=== PATIENT | male | born 1965 | race Caucasian/White ===

== ENCOUNTER 2020-12-26 09:11 | Outpatient (CLI) | payer OTHER, SELFPAY ==
--- NOTE | ~2020-12-26 | US_ITS ---
EXAMINATION: US art doppler w press LE BI DATE: 12/26/2020 10:08 INDICATION: Peripheral vascular disease. TECHNIQUE: Segmental pressures and plethysmographic and Doppler waveforms of the brachial and lower e xtremity arteries were obtained. COMPARISON: None. FINDINGS: Right and left brachial artery pressures of 162 mm Hg and 155 mm Hg, respectively, are concordant (no rmal difference <= 30 mmHg). The right and left high-thigh pressure indices are 0.81 and 0.92, respec tively (normal > 1.2). The right ankle-brachial index (TAWNYA) is 0.65 (normal >= 0.9-1). The right great toe-brachial index (T BI) is 0.50 (normal >= 0.6-0.8). The right lower extremity segmental pressure gradients are normal (n ormal gradients <= 20-30 mmHg between adjacent levels on the same leg or the same levels on the two l egs). Arterial waveforms are biphasic with brisk systolic upstrokes at the right common femoral and s uperficial femoral arteries and monophasic with flattening and broadened systolic peaks with borderli ne delayed upstrokes at the right popliteal, posterior tibial and dorsalis pedis arteries. The left TAWNYA is 0.60. The left TBI is 0.53. The left lower extremity segmental pressure gradients are increased between the left high thigh and the left [id number] popliteal artery. Arterial wavefor ms are biphasic with brisk systolic upstrokes at the left common femoral and superficial femoral chris tomas and monophasic with flattening and broadened systolic peaks with borderline delayed upstrokes at the left popliteal, artery and with delayed upstrokes at the left posterior tibial and dorsalis pedi s arteries. IMPRESSION: 1. Arterial occlusive disease to the bilateral lower limbs with only decreased bilateral high thigh p ressure indices and moderately decreased bilateral ankle brachial indices. Reviewed, dictated and finalized at location A. IMPRESSION: 1. Arterial occlusive disease to the bilateral lower limbs with only decreased bilateral high thigh pressure indices and moderately decreased bilateral ankle brachial indices.
== END 2020-12-26 09:12 | disposition home or self-care (01) ==
LOC: ANHIMG 09:16
PROVIDERS: PCP Internal Medicine; Visit Provider Internal Medicine
DX: I73.9 Peripheral vascular disease, unspecified (principal)
CPT/HCPCS: 93923

== ENCOUNTER 2022-03-20 10:28 | Emergency (ER) | payer OTHER, SELFPAY ==
[2022-03-20 11:18] VITALS: BP 158/68; PULSE 57; RESP 16; TEMP 35.9; O2SAT 99
--- NOTE | 2022-03-20 11:50 | ED.GENADULT ---
HPI - General Adult General Chief complaint: Back Pain/Injury Stated complaint: low back pain Related Data Allergies Allergy/AdvReac Type Severity Reaction Status Date / Time No Known Allergies Allergy Verified 03/20/22 11:11 [facility] Family History Family History Father Family history of cardiovascular disease Social History Social History Smoking status: Current every day smoker Tobacco type: e-cigarettes/vaping Second hand tobacco smoke exposure: Yes Alcohol intake: current Substance use: current Substance use type: marijuana Course Vital Signs Vital signs: Vital Signs Temperature 96.6 F L 03/20/22 11:18 Pulse Rate 57 L 03/20/22 11:18 Respiratory Rate 16 03/20/22 11:18 Blood Pressure 158/68 H 03/20/22 11:18 Pulse Oximetry 99 03/20/22 11:18 Oxygen Delivery Room Air 03/20/22 11:18 Temperature 96.6 F L 03/20/22 11:18 Pulse Rate 57 L 03/20/22 11:18 Respiratory Rate 16 03/20/22 11:18 Blood Pressure 158/68 H 03/20/22 11:18 Pulse Oximetry 99 03/20/22 11:18 Oxygen Delivery Room Air 03/20/22 11:18 Medical Decision Making Vital Signs Vital Signs: Vital Signs Temperature 96.6 F L 03/20/22 11:18 Pulse Rate 57 L 03/20/22 11:18 Respiratory Rate 16 03/20/22 11:18 Blood Pressure 158/68 H 03/20/22 11:18 Pulse Oximetry 99 03/20/22 11:18 Oxygen Delivery Room Air 03/20/22 11:18 Temperature 96.6 F L 03/20/22 11:18 Pulse Rate 57 L 03/20/22 11:18 Respiratory Rate 16 03/20/22 11:18 Blood Pressure 158/68 H 03/20/22 11:18 Pulse Oximetry 99 03/20/22 11:18 Oxygen Delivery Room Air 03/20/22 11:18 Lab Data Labs: Urine Glucose Negative Reference Range: Negative Urine Bilirubin Negative Reference Range: Negative Urine Ketone Negative Reference Range: Negative Urine Specific Kinsman 1.015 Reference Range:1.001-1.035 Urine Blood 1+ Reference Range: Negative * * Urine pH 6.5 Reference Range: 5.0-9.0 Urine Protein Negative Reference Range: Negative Urine Urobilinogen 1.0 Reference Range: 0.2-1.0 Urine Nitrate Negative Reference Range: Negative Urine Leukocyte Negative Reference Range: Negative Urine Color Yellow Reference Range: Yellow Urine Characteristics Clear Discharge Plan Discharge Prescriptions: No Action hydrochlorothiazide 25 mg tablet 25 mg PO DAILY Qty: 90 1RF nadolol 20 mg tablet 20 mg PO DAILY Qty: 30 5RF levothyroxine 125 mcg tablet 125 mcg PO DAILY Qty: 90 1RF atorvastatin 20 mg tablet 20 mg PO DAILY Qty: 90 1RF pantoprazole 40 mg tablet,delayed release (DR/EC) 40 mg PO QAM Qty: 90 1RF lisinopril 40 mg tablet 40 mg PO DAILY Qty: 90 1RF Xarelto 20 mg tablet 20 mg PO DAILY Qty: 30 5RF Rx Instructions: must administer with evening meal Follow-up/Referrals: Jalen Pedraza, [Primary Care Provider] -
--- NOTE | 2022-03-20 11:53 | ED.BACK ---
HPI - Back Pain/Injury General Chief Complaint: Back Pain/Injury Stated Complaint: low back pain Time Seen by Provider: 03/20/22 11:55 Source: patient, RN notes reviewed and old records reviewed Mode of arrival: ambulatory Limitations: no limitations History of Present Illness HPI Narrative: 56-year-old male presents to the [facility] with complaints of upper lumbar back pain for about a week, right side. No urinary symptoms. No abdominal pain or chest pain. Patient reports that has been intermittent. States about a week ago he bumped it on something. Also concern for a kidney stone. No bruising or swelling noted. Has full range of motion. Symptoms are very intermittent mom with changing of positions and movement making symptoms worse Denies any loss retention of bowel or bladder. No midline tenderness. No saddle anesthesia. Walks with a normal gait Related Data Allergies Allergy/AdvReac Type Severity Reaction Status Date / Time No Known Allergies Allergy Verified 03/20/22 11:11 Review of Systems Review of Systems: All systems reviewed & are unremarkable except as noted in HPI and below Constitutional: Constitutional: Reports no additional constitutional complaints Eyes: Eyes: Reports no additional eye complaints ENT: Reports system reviewed and no additional complaints, except as documented Cardiovascular: Cardiovascular: Reports no additional cardiovascular complaints, Denies chest pain and Denies dyspnea Respiratory: Respiratory: Reports no additional respiratory complaints, Denies chest congestion, Denies cough and Denies dyspnea Gastrointestinal: Gastrointestinal: Reports no additional gastrointestinal complaints, Denies abdominal pain, Denies nausea and Denies vomiting Musculoskeletal: Musculoskeletal: Reports as per HPI and Reports back pain Integumentary/Breasts: Skin/Breast: Reports system reviewed and no additional complaints, except as docu Neurologic: Reports system reviewed and no additional complaints, except as documented Psychiatric: Psychiatric: Reports no additional psychiatric complaints Allergic/Immunologic: Allergic/Immunologic: Reports no additional allergic/immunologic complaints [facility] Family History Family History Father Family history of cardiovascular disease Social History Social History Smoking status: Current every day smoker Tobacco type: e-cigarettes/vaping Second hand tobacco smoke exposure: Yes Alcohol intake: current Substance use: current Substance use type: marijuana Comments At the time of my signature, I reviewed and agree with the nursing past medical, surgical, social, and family history. There is no relevant family history pertinent to the patient complaint. Exam Const: General: cooperative, healthy appearing, comfortable, no acute distress, well developed, alert and well nourished Nutritional Appearance: well nourished Orientation/consciousness: patient oriented x3 Limitations: no limitations HENMT: Head: normal to inspection Ears: hearing grossly normal bilaterally and external ears normal Face/Nose/Sinus: Normal external nose present, Normal nares present, Normal nasal mucous membranes and turbinates present and normal facial exam Face and sinus: normal facial exam Mouth: Yes Normal oral and palatal mucosa present, Yes lip normal and Yes moist mucous membranes Throat: posterior oropharynx normal and uvula midline Eyes: General: appearance normal, both eyes and all related structures Alignment and Position: alignment normal Periorbital: periorbital findings normal Conjunctivae: conjunctivae normal Pupils: Equal, round and reactive pupils present EOM: EOMs intact bilaterally Neck: Neck: normal visual inspection, full ROM, no lymphadenopathy and no meningeal signs Chest: Chest palpation & inspection: normal inspection of the
== END 2022-03-20 12:17 | disposition home or self-care (01) ==
PROVIDERS: Emergency Provider Nurse Practitioner; PCP Internal Medicine
DX: S39.012A Strain of muscle, fascia and tendon of lower back, initial encounter (principal); W22.8XXA Striking against or struck by other objects, initial encounter; F17.290 Nicotine dependence, other tobacco product, uncomplicated; E78.00 Pure hypercholesterolemia, unspecified; I10 Essential (primary) hypertension; K21.9 Gastro-esophageal reflux disease without esophagitis; E03.9 Hypothyroidism, unspecified; Z86.2 Personal history of diseases of the blood and blood-forming organs and certain disorders involving the immune mechanism
CPT/HCPCS: 81003; 99213; G0463

== ENCOUNTER 2022-03-30 06:52 | Emergency (ER) | payer OTHER, SELFPAY ==
--- NOTE | ~2022-03-30 | CT_ITS ---
Non-contrast Head CT History: Metastatic disease Technique: Axial non-contrast imaging of the brain was performed. Dose reduction technique was used on this scan by utilizing automated exposure control and iterative reconstruction technique. The dose -length product (DLP) was 605.33 mGy-cm. Findings: There is no evidence of intracranial hemorrhage, mass lesion, or acute infarct. Brain par enchyma appears normal. The ventricles and subarachnoid spaces are normal in size. The calvarium ap pears normal. The visualized paranasal sinuses and mastoid air cells are clear. Impression: No significant abnormality seen. Please note that contrast enhanced MR is more sensitive for small me tastatic lesions. Reviewed, dictated and finalized at [facility]. 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 Please note that contrast enhanced MR is more sensitive for small metastatic lesions.
--- NOTE | ~2022-03-30 | CT_ITS ---
Clinical Indication: Metastatic disease CT Scan of the Chest, Abdomen, and Pelvis with Contrast: Technique: Contiguous sections were acquired throughout the chest, abdomen, and pelvis after intraven ous administration of 100 cc of Omnipaque 350. Dose reduction technique was used on this scan by uti lizing automated exposure control and iterative reconstruction technique. The dose-length product (DL P) was 861.25 mGy-cm. COMPARISON: Noncontrast abdominopelvic CT performed earlier on 03/30/2022 Findings: There is no evidence of any significant mediastinal, hilar or axillary lymphadenopathy. The mediastin al soft tissues and vascular structures appear normal. There is no evidence of pleural or pericardial effusion. 4 mm right lower lobe pulmonary nodule noted (axial image 64). Lungs are otherwise clear. Multiple hypodense hepatic masses are again present, with much more extensive involvement of the left hepatic lobe than the right. Largest lesion again measures approximately 4.2 cm in diameter. 2.5 cm right adrenal nodule suspicious for metastasis. Small calcified gallstones noted. The spleen, pancrea s, and right adrenal gland are within normal limits. Simple right renal cysts noted. Left kidney is r elatively atrophic. No evidence of aortic aneurysm. There is extensive retroperitoneal/periaortic lymphadenopathy. There is bulky melinda hepatis/peripancr eatic lymphadenopathy. Largest node in the peripancreatic region measures 4.2 x 3.1 cm (axial image 1 26). Lymphadenopathy extends along the bilateral common iliac and right external iliac chains. Most a ccessible node measures 3.3 cm in diameter at the right external iliac chain at the right lower quadr ant (axial image 216). No bowel obstruction. Suggestion of extensive wall thickening of the gastric body. No ascites. Urinary bladder is unremarkable. Prostate gland and seminal vesicles are unremarkable. Impression: Extensive hepatic and gallo metastatic disease, as well as probable right adrenal metastasis, as seen on earlier noncontrast CT. Suggestion of extensive wall thickening of the gastric body. Metastatic gastric carcinoma is a consid eration. Consider endoscopy and/or tissue sampling of metastatic lesion to establish histologic diagn osis. Single 4 mm right lower lobe pulmonary nodule, nonspecific. Cholelithiasis. Reviewed, dictated and finalized at [facility]. 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 Suggestion of extensive wall thickening of the gastric body. Metastatic gastric carcinoma is a consideration. Consider endoscopy and/or tissue sampling of met astatic lesion to establish histologic diagnosis. Single 4 mm right lower lobe pulmonary nodule, nonspecific. Cholelithiasis.
--- NOTE | ~2022-03-30 | CT_ITS ---
Non-contrast CT scan of the Abdomen and Pelvis Clinical indication: Groin pain Technique: 5 mm axial scans were obtained through the abdomen and pelvis without intravenous or oral contrast. Dose reduction technique was used on this scan by utilizing automated exposure control and iterative reconstruction technique. The dose-length product (DLP) was 734.67 mGy-cm. COMPARISON: 07/30/2017 Findings: Images through the lung bases reveal no abnormalities. There are numerous hypodense hepatic masses, predominantly within the left hepatic lobe, consistent w ith extensive hepatic metastatic disease. Somewhat nodular contour of the liver overall, but no intra hepatic biliary dilatation. Small calcified gallstones noted. 2 cm right adrenal nodule present. Right renal cysts are present. Left kidney is relatively atrophic. The spleen, pancreas, and left adr enal gland appear normal. There is no aortic aneurysm. There is extensive retroperitoneal/periaortic lymphadenopathy extending along the bilateral common iliac chains and the right external iliac chain . Right external iliac node in the right lower quadrant measures 3.5 cm in diameter. There is additio nal peripancreatic/melinda hepatis lymphadenopathy, with largest node measuring 4 cm in diameter (axial image 55). There is no evidence of bowel obstruction. Images through the pelvis were performed. No ascites. Urinary bladder unremarkable. Prostate gland an d seminal vesicles are unremarkable. Impression: Extensive hepatic and gallo metastatic disease, as detailed above, with additional right adrenal prob able metastasis. Primary/source lesion remains unclear. Tissue sampling advised to attempt to establi sh a histologic diagnosis. Cholelithiasis. Reviewed, dictated and finalized at [facility] [place]. 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 Primary/source lesion remains unclear. T issue sampling advised to attempt to establish a histologic diagnosis. Cholelithiasis.
[2022-03-30 07:02] VITALS: BP 185/85; PULSE 71; RESP 16; TEMP 36.8; O2SAT 99
[2022-03-30 08:06] LABS: Basophils Percent Auto 0.4 % (0.2-1.2); Eosinophils Absolute Auto 0.2 K/mm3 (0-0.3); Eosinophils Percent Auto 1.8 % (0-4.4); Hematocrit 39.4 % (42.0-52.0); Hemoglobin 13.2 g/dL (14.0-18.0); Immature Granulocyte Absolute 0.05 K/mm3 (0.00-0.031); Immature Granulocyte Percent A 0.5 % (0-0.5); Lymphocytes Absolute Auto 1.22 K/mm3 (0.9-3.2); Lymphocytes Percent Auto 13.1 % (18.3-44.2); Mean Corpuscular HGB Conc 33.5 g/dl (32-36); Mean Corpuscular Hemoglobin 30.6 pg (26-34); Mean Corpuscular Volume 91.2 fl (80-100); Mean Platelet Volume 9.4 fl (7.4-10.4); Monocytes Absolute Auto 0.7 K/mm3 (0.1-0.6); Monocytes Percent Auto 7.6 % (2.6-8.5); Neutrophils Absolute Auto 7.1 K/mm3 (1.3-6.7); Neutrophils Percent Auto 76.6 % (45.5-73.1); Platelet Count Result 258 k/mm3 (150-375); Red Blood Count 4.32 M/mm3 (4.6-6.20); Red Cell Distribution Width 11.9 % (11.5-14.5); White Blood Count 9.3 K/mm3 (4.5-10.0)
[2022-03-30 08:16] LABS: Alanine Aminotransferase 22 U/L (6-50); Albumin Level 4.3 g/dL (3.5-5.1); Alkaline Phosphatase 85 U/L (38-126); Anion Gap 6 mmol/L (8-16); Aspartate Amino Transferase 40 U/L (17-59); Bilirubin,Total 0.9 mg/dL (0.2-1.3); Blood Urea Nitrogen 15 mg/dL (9-20); Calcium 10.1 mg/dL (8.4-10.2); Carbon Dioxide 32 mmol/L (22-30); Chloride 96 mmol/L (98-107); Estimated CRCL calculation 72 ml/min; Estimated Glomerular Filt Rate > 60; Glucose 145 mg/dL (65-110); Sodium 134 mmol/L (137-145)
--- NOTE | 2022-03-30 09:33 | ED.GENADULT ---
HPI - General Adult General Chief complaint: Fall Stated complaint: fall/ groin pain Time Seen by Provider: 03/30/22 06:58 Source: patient Mode of arrival: ambulatory Limitations: no limitations History of Present Illness HPI narrative: 56-year-old with a history of hypertension, DVTs on Xarelto here with complaints of right groin pain for past 2 days. Patient states that he did splits and ever since then he has been having significant pain in his right groin. Patient states that he went to work yesterday was having significant pain while he was walking today he was unable to walk. He denies any other injuries. No history of nausea, vomiting. Onset (ago): day(s) (2) Radiation: non-radiation Severity: moderate Quality: aching Pain Consistency: constant Relieving factors: none Exacerbating factors: none Associated symptoms: denies other symptoms Related Data Allergies Allergy/AdvReac Type Severity Reaction Status Date / Time No Known Allergies Allergy Verified 03/30/22 08:38 Review of Systems Review of Systems: All systems reviewed & are unremarkable except as noted in HPI and below Constitutional: Constitutional: Reports no additional constitutional complaints Eyes: Eyes: Reports no additional eye complaints ENT: Reports system reviewed and no additional complaints, except as documented Cardiovascular: Cardiovascular: Reports no additional cardiovascular complaints Respiratory: Respiratory: Reports no additional respiratory complaints Gastrointestinal: Gastrointestinal: Reports no additional gastrointestinal complaints Genitourinary: Genitourinary: Reports no additional male genitourinary complaints Musculoskeletal: Musculoskeletal: Reports as per HPI Integumentary/Breasts: Skin/Breast: Reports system reviewed and no additional complaints, except as docu Neurologic: Reports system reviewed and no additional complaints, except as documented PMFSH Family History Family History Father Family history of cardiovascular disease Social History Social History Smoking status: Current every day smoker Tobacco type: e-cigarettes/vaping Second hand tobacco smoke exposure: Yes Alcohol intake: current Substance use: current Substance use type: marijuana Exam Narrative: GENERAL: Well-appearing, well-nourished, and in no acute distress. HEAD: Normocephalic, atraumatic. EYES: PERRLA and EOMI. ENT: Nares clear, no rhinorrhea or epistaxis. Mucous membranes moist. NECK: Supple. CHEST: Clear to auscultation. No respiratory distress. HEART: Regular rate and rhythm. No murmur heard. Normal peripheral pulses. ABDOMEN: Soft, nontender, nondistended, normal active bowel sounds. Examination of the right groin shows no obvious hernia or masses. EXTREMITIES: Normal range of motion. No edema. SKIN: Warm, dry, no rash. NEURO: No focal deficits. Alert and oriented x3. PSYCH: Normal mood and affect. Course Course Emergency Course: 56-year-old here with right groin pain and thinks there is a big mass in his right groin I did not elicit any obvious hernia or mass did a CT scan which showed metastatic lesions in the abdomen. I discussed with oncologist who recommended CT of the head and CT of the chest and abdomen with contrast which I did which shows multiple lesions in the abdomen. I did discuss with Dr. Pedraza will follow up with this patient. I did inform patient and his family who are at the bedside for a follow-up with Dr. Pedraza in the next few days for possible biopsy. Meanwhile we will give him not hydrocodone tablets for his groin pain. Vital Signs Vital signs: Vital Signs Temperature 36.8 C 03/30/22 07:02 Pulse Rate 71 03/30/22 07:02 Respiratory Rate 16 03/30/22 07:02 Blood Pressure 185/85 H 03/30/22 07:02 Pulse Oximetry 99 03/30/22 07:02 Oxygen Delivery Room Air 1
== END 2022-03-30 10:26 | disposition home or self-care (01) ==
PROVIDERS: Emergency Provider Family Medicine; PCP Internal Medicine
DX: R10.31 Right lower quadrant pain (principal); C78.7 Secondary malignant neoplasm of liver and intrahepatic bile duct; C80.1 Malignant (primary) neoplasm, unspecified; F17.290 Nicotine dependence, other tobacco product, uncomplicated; K80.20 Calculus of gallbladder without cholecystitis without obstruction; R91.1 Solitary pulmonary nodule; W00.0XXA Fall on same level due to ice and snow, initial encounter
CPT/HCPCS: 36415; 70450; 71260; 74176; 74177; 74178; 80053; 85025; 99284; Q9967

== ENCOUNTER 2022-04-20 09:15 | Outpatient (CLI) | payer OTHER, SELFPAY ==
--- NOTE | ~2022-04-20 | US_ITS ---
EXAMINATION: US biopsy lymph node DATE: 04/20/2022 10:22 INDICATION: Multiple enlarged lymph nodes concerning for metastatic disease. TECHNIQUE: The procedure including the risks and benefits was discussed with the patient. Risks discu ssed included bleeding and infection. The patient understood the risks and agreed to proceed. The sk in overlying the right groin was prepped and draped in usual sterile fashion. Anesthetic was adminis tered with 1% lidocaine subcutaneously. An 18 gauge core biopsy needle was advanced under continuous ultrasound observation to the lesion of interest. 5 core biopsy specimens were obtained. The needl e was removed and the entry site was cleaned and dressed. Post procedure ultrasound demonstrated no hemorrhage. FINDINGS: Ultrasound images demonstrate a 4.3 x 3.1 x 3.6 cm hypoechoic right inguinal lymph node. Beltran bsequent images demonstrate the biopsy needle advanced into the lymph node.. IMPRESSION: 1. Successful Ultrasound-guided biopsy of an enlarged 4.3 cm right inguinal lymph node which is da rning for metastatic disease. Reviewed, dictated and finalized at location A. 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 Successful Ultrasound-guided biopsy of an enlarged 4.3 cm right inguinal lym ph node which is concerning for metastatic disease.
== END 2022-04-20 09:16 | disposition home or self-care (01) ==
PROVIDERS: PCP Physician Assistant; Visit Provider Internal Medicine
DX: I89.9 Noninfective disorder of lymphatic vessels and lymph nodes, unspecified (principal); C77.4 Secondary and unspecified malignant neoplasm of inguinal and lower limb lymph nodes
CPT/HCPCS: 38505; 76942; 88305; 88313; 88342

== ENCOUNTER 2022-05-06 12:58 | Outpatient (CLI) | payer OTHER, SELFPAY ==
[2022-05-06 14:58] LABS: Prothrombin Time 13.1 Seconds (11.1-14.7)
[2022-05-06 14:59] LABS: Partial Thromboplastin Time 29.5 SECONDS (22.3-36.8)
== END 2022-05-06 12:59 | disposition home or self-care (01) ==
PROVIDERS: PCP Internal Medicine; Visit Provider Surgery
DX: C16.9 Malignant neoplasm of stomach, unspecified (principal)
CPT/HCPCS: 36415; 85610; 85730

== ENCOUNTER 2022-05-10 00:06 | Day surgery (SDC) | payer OTHER, SELFPAY ==
[2022-05-04 09:11] VITALS: BMI 27.2
--- NOTE | 2022-05-04 09:14 | PC.NURSE ---
Report to the Outpatient Waiting Room, entrance under the green pavilion located off [facility], at time 10:00 on date 05/10/22. Planned Procedure Time: 12:00. Time changes happen often and if your time is changed the preop area will call you the afternoon before. - You and your visitor will be asked to self-screen and do not enter if you have any COVID symptoms. - Only one visitor is requested with a max of two and NO children visitors are allowed at this time. - The patient visitor may be requested to leave or wait in car when not with patient due to distancing restrictions. - A mask is optional within the hospital at this time. Patients may have clear liquids (water, carbonated beverages, clear teas, apple juice) until 3 hours prior to surgery (9:00) with a maximum of 20 ounces. - No food from midnight until time of surgery Take the following medications with a SIP of water the morning of surgery: LEVOTHYROXINE, NADOLOL, PAIN PILL IF NEEDED DO NOT STOP ANY OF YOUR OTHER PRESCRIPTION MEDICATIONS PRIOR TO SURGERY EXCEPT THE FOLLOWING Medications to discontinue per physician: XARELTO Date to take last dose: INSTRUCTED BY Please no make-up, nail moldovan, hairspray, perfume, deodorant, or body powder the day of surgery. No jewelry (including any body piercings) or valuables the day of surgery, leave them at home. Please take a shower or bath the night before, or the morning of, surgery with an antibacterial soap. Wear comfortable, loose fitting clothing. - Jewelry must be removed prior to entering the operating room. Rings and piercings that are not removed may be cut off. - The hospital will not accept responsibility for valuables. - Please leave all valuables, including medications, at home the day of surgery. If you are going home after surgery, a licensed ups driver must drive you home. - NO public transportation without another adult if you receive anesthesia. - We recommend that an adult stay with you for 24 hours following discharge. - We also recommend that you do not drive, make important decision, drink alcoholic beverages, or take any drugs that were not prescribed by your health care provider for at least 24 hours after your discharge time. Follow any additional instructions given to you from your surgeon. If you or anyone in your household have experienced Covid symptoms in the past week, please notify your surgeon or the nurse liaison at the phone number below for possible testing. Telephone instructions given to CHESTER GONZALEZ and asked if any additional questions and then verbalized understanding. Patient advised to call surgeon office or pre surgery nurse liaison [phone] if any additional questions.
--- NOTE | ~2022-05-10 | XR_ITS ---
EXAMINATION: XR fl guide central line place INDICATION: Port-A-Cath insertion TECHNIQUE: Single intraoperative fluoroscopic image is submitted for review. Total fluoroscopic time is 18.0 seconds. COMPARISON: None available FINDINGS: Fluoroscopic image demonstrates a right internal jugular Port-A-Cath ending with its tip in the superior vena cava. Please refer to procedure note for full details. IMPRESSION: 1. Right internal jugular Port-A-Cath ending in the superior vena cava. Reviewed, dictated and finalized at location B. MACY TECH CUSTOMER SERVICE
--- NOTE | ~2022-05-10 | XR_ITS ---
EXAMINATION: XR chest port-a-cath/central DATE: 05/10/2022 08:48 INDICATION: Port placement. TECHNIQUE: A single frontal view of the chest was obtained on 2 radiographs. COMPARISON: Chest 2 views 07/30/2017, chest CT 03/30/2022 FINDINGS: The chest demonstrates clear lungs without pneumonia, pleural effusion, or pneumothorax. Th e heart size is normal. There is a right internal jugular port with tip in superior vena cava. IMPRESSION: 1. Port tip in superior vena cava. Reviewed, dictated and finalized at location A. L CRANE OPERATOR
--- NOTE | 2022-05-10 06:42 | WPDANESEPPF ---
Anes - Initial Pre Proc Eval Procedure: Operation Date: 05/10/22 07:30 Proposed Procedures p Insertion Arlene Cath - Agus Maria MD Date/Time: 05/10/22 06:42 Surgeon: Agus Maria MD Pre Op Diagnosis: Ca body of stomach Patient Data Age: 56 Gender: M Height: 1.78 m Weight: 86.2 kg Allergies Allergy/AdvReac Type Severity Reaction Status Date / Time No Known Allergies Allergy Verified 05/04/22 09:09 Home Medications Medication Instructions Recorded Confirmed Type hydrochlorothiazide 25 mg tablet 25 mg PO DAILY #90 tabs 10/20/21 05/04/22 Rx nadolol 20 mg tablet 20 mg PO DAILY #30 tabs 11/15/21 05/04/22 Rx levothyroxine 125 mcg tablet 125 mcg PO DAILY #90 tabs 12/14/21 05/04/22 Rx atorvastatin 20 mg tablet 20 mg PO DAILY #90 tabs 12/15/21 05/04/22 Rx pantoprazole 40 mg tablet,delayed 40 mg PO QAM #90 tabs 12/15/21 05/04/22 Rx release lisinopril 40 mg tablet 40 mg PO DAILY #90 tabs 01/14/22 05/04/22 Rx rivaroxaban 20 mg tablet (Xarelto) 20 mg PO DAILY #30 tabs 01/14/22 05/04/22 Rx baclofen 10 mg tablet 10 mg PO TID PRN muscle pain #10 03/20/22 05/04/22 Rx tabs hydrocodone 5 mg-acetaminophen 325 1 tablet PO Q12H #30 tabs 04/07/22 05/04/22 Rx mg tablet Patient hx anesthesia problems: none Family hx anesthesia problems: none Results Review: All pre-operative results and documents have been reviewed as part of the pre-operative evaluation. [facility] Past Medical History Medical History HTN (hypertension) MALINI (obstructive sleep apnea) Overweight Smoker Family History Family History Father Family history of cardiovascular disease Social History Social History Smoking packs per day: 0.75 Smoking cigarettes per day: 15.0 Years smoked: 20 Smoking pack-years: 15.00 Smoking status: Current every day smoker Tobacco type: cigarettes Second hand tobacco smoke exposure: Yes Alcohol intake: former Substance use: current Substance use type: marijuana Lack of Transportation: No Lack of Food: Sometimes True Current Housing: I Have Housing Concerned About Future Housing: No Difficulty Paying Gas/Electric Bills: No Difficulty Paying for Meds: No Currently Unemployed: No Education: Grade School Difficulty w/ Childcare or Family Care: No Living arrangements: with family Spiritual care concerns: No Anes - Eval Final PreProcedure Day of Procedure 05/10/22 06:42 Patient weight: overweight Heart: regular rate and rhythm Lungs: clear to auscultation Airway: Mallampati scale class II Neurological: alert and oriented Last oral intake: >/= 8 hours ASA classification: III Emergent: no Anesthetic plan: proceed Anesthesia type and monitoring: general GIVS and standard monitoring Results Review: All pre-operative results and documents have been reviewed as part of the pre-operative evaluation. Informed Consent: The patient's anesthetic plan and its attendant risks and benefits were discussed with the patient/family/POA. Questions were solicited and answers provided to the satisfaction of the patient/family/POA.
[2022-05-10] MEDS: LACTATED RINGERS 1,000 ML 30 ML IV CONT (06:45)
[2022-05-10] MEDS: KETOROLAC 15 MG/ML VIAL (*BKC) IV PUSH (06:45)
[2022-05-10 07:00] VITALS: BP 207/90; PULSE 87; RESP 16; TEMP 36.7; O2SAT 100
--- NOTE | 2022-05-10 07:36 | PM.IMHP ---
H&P: HPI History of Present Illness Date/Time: 05/10/22 07:36 Chief Complaint: Needs portacatheter placement Narrative: Pt with gastric cancer who is needing vascular access for upcoming chemotherapy treatments. Has never had a central line or port in the past. Review of Systems Review of Systems: I have discussed the patient with Chanda Chaney APN and agree with the documented note below and care plan. [facility] Past Medical History Medical History HTN (hypertension) MALINI (obstructive sleep apnea) Overweight Smoker Family History Family History Father Family history of cardiovascular disease Social History Social History Smoking packs per day: 0.75 Smoking cigarettes per day: 15.0 Years smoked: 20 Smoking pack-years: 15.00 Smoking status: Current every day smoker Tobacco type: cigarettes Second hand tobacco smoke exposure: Yes Alcohol intake: former Substance use: current Substance use type: marijuana Lack of Transportation: No Lack of Food: Sometimes True Current Housing: I Have Housing Concerned About Future Housing: No Difficulty Paying Gas/Electric Bills: No Difficulty Paying for Meds: No Currently Unemployed: No Education: Grade School Difficulty w/ Childcare or Family Care: No Living arrangements: with family Spiritual care concerns: No Meds Home Medications and Allergies Home Medications Medication Instructions Recorded Confirmed Type hydrochlorothiazide 25 mg tablet 25 mg PO DAILY #90 tabs 10/20/21 05/10/22 Rx nadolol 20 mg tablet 20 mg PO DAILY #30 tabs 11/15/21 05/10/22 Rx levothyroxine 125 mcg tablet 125 mcg PO DAILY #90 tabs 12/14/21 05/10/22 Rx atorvastatin 20 mg tablet 20 mg PO DAILY #90 tabs 12/15/21 05/10/22 Rx pantoprazole 40 mg tablet,delayed 40 mg PO QAM #90 tabs 12/15/21 05/10/22 Rx release lisinopril 40 mg tablet 40 mg PO DAILY #90 tabs 01/14/22 05/10/22 Rx rivaroxaban 20 mg tablet (Xarelto) 20 mg PO DAILY #30 tabs 01/14/22 05/10/22 Rx baclofen 10 mg tablet 10 mg PO TID PRN muscle pain #10 03/20/22 05/10/22 Rx tabs hydrocodone 5 mg-acetaminophen 325 1 tablet PO Q12H #30 tabs 04/07/22 05/10/22 Rx mg tablet Allergies Allergy/AdvReac Type Severity Reaction Status Date / Time No Known Allergies Allergy Verified 05/10/22 07:16 Vital Signs Vital Signs - 24 hr 05/10/22 07:00 Temperature 36.7 C Pulse Rate 87 Respiratory Rate 16 Blood Pressure 207/90 H Pulse Oximetry 100 Oxygen Delivery Room Air Exam Const: General: comfortable and no acute distress HENMT: Face/Nose/Sinus: Normal nares present Mouth: Yes moist mucous membranes Eyes: General: appearance normal, both eyes and all related structures Sclera: sclerae normal Pupils: Equal, round and reactive pupils present EOM: EOMs intact bilaterally Neck: Neck: supple and no JVD Resp: Effort & Inspection: normal respiratory effort Auscultation: clear to auscultation bilaterally Cardio: Rate: regular rate Rhythm: regular rhythm GI: GI Palp: Yes Soft to palpation Auscultation: normal bowel sounds Skin: General skin exam: normal color and no rashes or lesions noted Neuro: Speech: normal speech Motor exam (neuro): 5/5 motor strength present throughout Sensory Exam: normal sensation Extrem: General: normal to inspection Psych: Mental Status: mental status grossly normal Affect: normal affect Assessment and Plan Assessment and plan (1) Gastric cancer: Code(s): C16.9 - Malignant neoplasm of stomach, unspecified Status: Acute Assessment and Plan: Will proceed to the OR today for placement of a portacatheter under IV sedation. Risks, benefits, indications, and expected outcomes were discussed in detail with the patient and/or family. They understand and I have answered all other questions. They wished to pro
--- NOTE | 2022-05-10 07:39 | WPDHPUPDATE1 ---
History and Physical Update Update Date/Time: 05/10/22 07:39 History and Physical has been reviewed, including an updated exam of the patient. There are NO changes in the patient's condition. Risks, benefits, and alternatives have been discussed and questions answered. Patient agrees to proceed with procedure.
[2022-05-10] MEDS: ceFAZolin 2 GM/D5W 50 ML 2 GM/50 ML BAG IVPB (07:42)
[2022-05-10] MEDS: LIDO 1%/EPINEPHRINE 1:100,000 20 ML VIAL INFILTRATE (08:00)
[2022-05-10] MEDS: HEPARIN SODIUM 5,000 UNITS/ML VIAL 5000 UNITS IRRIGATION (08:01)
[2022-05-10] MEDS: HEPARIN SODIUM 5,000 UNITS/ML VIAL 1000 UNITS IRRIGATION (08:02)
[2022-05-10 08:32] VITALS: BP 141/93; PULSE 75; RESP 16; O2SAT 100
--- NOTE | 2022-05-10 08:32 | P.OP_ITS ---
Procedure Note - Detailed Date of Procedure 05/10/22 Pre-op Diagnosis Ca body of stomach Post-op Diagnosis Same Procedure Performed Placement of right internal jugular vein single-lumen port a catheter with intraoperative fluoroscopy Surgeon Agus Maria MD Human Resources Communications Manager Vernell Bartlett HYDROGRAPHICAL TECHNICAL OFFICER Anesthesia MAC Indications Patient as gastric cancer and needs a port a catheter placed for chemotherapy. Description of Procedure After informed consent was obtained patient was brought to the operating room and he was placed in the supine position and IV sedation was administered. The bilateral anterior neck and chest was prepped and draped in usual sterile fashion. A time-out was then performed correctly identifying the patient as well as procedure to be performed. The patient was then placed head down in the Trendelenburg position. A long 18gauge needle was then used to cannulate the right internal jugular vein between the 2 heads of the right sternocleidomastoid muscle on the 1st pass without any difficulty. There was return of dark venous appearing blood. A guidewire was advanced through the needle into the right internal jugular vein and subsequently into the superior vena cava. Intraoperative fluoroscopy was used to verify that the guidewire was in the proper position and then I anesthetized the area of the right upper chest below the medial 1/3 of the clavicle with 0.5% Marcaine mixed with 1% lidocaine. A transverse incision was then made in this area with a scalpel and then the subcutaneous port pocket created with a combination of electrocautery and blunt finger dissection. I then tunneled the single-lumen 9.6 Afghan catheter between the 2 incisions. A dilator and breakaway sheath was then advanced over the guidewire. The guidewire and dilator were removed leaving the sheath in place. The catheter was then advanced through the sheath into the right internal jugular vein and down into the right atrium of the heart. Intraoperative fluoroscopy was then used to identify the tip of the catheter then I pulled back on the catheter until the tip was at the junction of the superior vena cava and right atrium. I then cut the catheter to the appropriate length at the skin level and attached it to the Smart Port. The port was then secured in the subcutaneous port pocket with 3 separate 3 0 Prolene sutures. I then accessed the port and it aspirated blood easily and then it was flushed with heparinized saline solution. I then irrigated out the port pocket with sterile saline solution and hemostasis was good. I then closed the right upper anterior chest incision utilizing 3 0 Vicryl sutures. The small right neck incision closed utilizing a 4 0 Monocryl suture. The skin edges on the chest incision was closed utilizing a running subcuticular 4 0 Monocryl suture. Lastly the port was accessed 1 last time percutaneously and again a bethany back blood easily and it was then flushed with 5000 units of heparin. The incisions were both cleaned and then skin glue were applied to both incisions. The patient tolerated the procedure well no complications. All sponges, needles, and instrument counts were correct at the end procedure. EBL was _10__cc. The patient was awakened and taken to recovery in stable satisfactory condition. Portable chest x-ray reading pending at the time dictation. Implants 9.6 Afghan single-lumen catheter attached to a Smart Port Estimated Blood Loss 10 Drains No Packing No Pathology None sent Complications No immediate complications Condition Stable Disposition PACU [facility] Billing Surgery - Charge Forward: Surgery Billing
[2022-05-10 09:00] VITALS: BP 203/103; PULSE 75; RESP 16
[2022-05-10 09:20] VITALS: BP 192/103; PULSE 78; RESP 14
== END 2022-05-10 09:32 | disposition home or self-care (01) ==
PROVIDERS: PCP Internal Medicine; Visit Provider Surgery
PROC: (CPT 36561; principal; 2022-05-10 07:30)
DX: C16.2 Malignant neoplasm of body of stomach (principal); I10 Essential (primary) hypertension; G47.33 Obstructive sleep apnea (adult) (pediatric); Z79.01 Long term (current) use of anticoagulants; F17.210 Nicotine dependence, cigarettes, uncomplicated; F12.90 Cannabis use, unspecified, uncomplicated
CPT/HCPCS: 36561; 77001; C1788; J0690; J1644; J1885; J2250; J2405; J2704; J3010; J7030; J7120

== ENCOUNTER 2022-05-15 03:16 | Inpatient (IN) | payer OTHER, SELFPAY ==
[2022-05-15] VITALS (29 sets, daily range): BP systolic 71–112; BP diastolic 23–82; PULSE 61–88; RESP 12–25; TEMP 35.7–36.8; O2SAT 92–100; BMI 22.9
--- NOTE | ~2022-05-15 | CT_ITS ---
EXAMINATION: CTA chest abdomen pelvis DATE: 05/15/2022 04:57 INDICATION: Hypotension. Intractable posterior thoracic pain. History of stomach cancer. TECHNIQUE: Computed tomography angiography (CTA) of the chest was performed with 100 mL Omnipaque-350 intravenous contrast timed to evaluate the pulmonary arteries. Coronal maximum intensity projection 3D-reconstructions were created by the technologist. Automated exposure control and iterative reconst ruction technique were employed. Exam dose: 1200.01 mGy-cm total exam DLP. COMPARISON: 03/30/2022 CT chest abdomen pelvis FINDINGS: Small pericardial effusion, new since 03/30/2022. Heart size is within normal limits. There is thoracic and abdominal aortic atherosclerosis without aneurysm. Right internal jugular catheter in superior vena cava. No hilar or mediastinal mass lesion or lymphadenopathy. 4 mm superior segment right lower lobe pulmonary nodule; differential diagnosis includes pulmonary gr anuloma, hamartoma, pulmonary metastasis. No pulmonary infiltrate or consolidation or other pulmonary mass lesion is noted. There is prominent fluid distention of the esophagus throughout the thorax very prominent fluid diste ntion of the stomach, evidence of gastric outlet obstruction. Extensive hepatic metastatic disease is again noted, dramatically increased in severity since 022. There is increased size of the right adrenal metastasis, measuring up to 2.7 x 3.4 cm today appr oximately 2.1 x 2.2 cm on 03/30/2022. There is interval infarction of the right hepatic lobe since 03/30/2022. Very prominent melinda hepatis, peripancreatic, periaortic and aortocaval lymphadenopathy and right com mon, external and internal iliac and left external iliac lymphadenopathy. The spleen and pancreas are unremarkable. Diffuse left renal prominent atrophy. Several up to approximately 2 and 2.4 cm right renal cysts. No urinary tract calculus or hydroureteronephrosis. There is moderate diffuse urinary bladder wall thick ening, moderate prostate enlargement. Normal appendix. Mild diverticulosis of left and right colon; no diverticulitis. No small or large marky wel obstruction. No intraperitoneal free air. Severe degenerative disease at L4-5 with mild retrolisthesis. Severe degenerative disease at L5-S1. No suspicious osteolytic or osteoblastic lesions are noted. IMPRESSION: Dramatic enlargement of hepatic metastases and right adrenal metastasis since 03/30/2022 Interval right hepatic infarction since 03/30/2022 There is prominent gastric distention since 03/30/2022, likely due to gastric outlet obstruction/mark gnancy; there is prominent fluid distention/dilatation throughout the thoracic esophagus Interval mild pericardial effusion since 03/30/2022 Small pericardial effusion since 03/30/2022 Cholelithiasis Severe left renal atrophy Right renal cysts Mild colonic diverticulosis 4 mm superior segment right lower lobe pulmonary nodule Reviewed, dictated and finalized at [facility] Reviewed, dictated and finalized at [facility]. NT SERVICE CONSULTANT IMPRESSION: Dramatic enlargement of hepatic metastases and right adrenal metas tasis since 03/30/2022 Interval right hepatic infarction since 03/30/2022 There is prominent gastric distention since 03/30/2022, likely due to gastric o utlet obstruction/malignancy; there is prominent fluid distention/dilatation th roughout the thoracic esophagus Interval mild pericardial effusion since 03/30/2022 Small pericardial effusion since 03/30/2022 Cholelithiasis Severe left renal atrophy Right renal cysts Mild colonic diverticulosis 4 mm superior segment right lower lobe pulmonary nodule
--- NOTE | ~2022-05-15 | XR_ITS ---
XR abdomen NG/feed tube insert DATE: 05/15/2022 05:57 INDICATION: Nasogastric tube placement TECHNIQUE: Portable upright AP view on May 15, 2022 0554 hours COMPARISON: 07/13/2022 CTA chest abdomen pelvis FINDINGS: A nasogastric tube is present in the body of the stomach, proximal side-port approximately 8 cm distal to the diaphragmatic hiatus. Prominent air-fluid level in the gastric fundus. No small or large bowel dilatation is noted. IMPRESSION: NG tube in body of stomach; prominent gastric fundal air-fluid level Reviewed, dictated and finalized at [facility] Reviewed, dictated and finalized at [facility]. RIAL EXPEDITOR IMPRESSION: NG tube in body of stomach; prominent gastric fundal air-fluid agustin thomas
--- NOTE | 2022-05-15 03:35 | ECG_ITS ---
Measurements Intervals [place] Rate: 64 P: 62 ND: 149 QRS: 35 QRSD: 98 T: -9 QT: 396 QTc: 410 Interpretive Statements SINUS RHYTHM NO PREVIOUS ECG AVAILABLE FOR COMPARISON Electronically Signed On 05-15-2022 8:40:44 FRUIT HARVEST WORKER by Lisa Unger M.D.
[2022-05-15] MEDS: HYDROmorphone HCL INJ (*CRX) 1 MG/ML SYR IV PUSH ×2 (03:45→04:28)
[2022-05-15] MEDS: SODIUM CHLORIDE 0.9% IV 3,000 ML 999 ML IV CONT (03:45)
[2022-05-15 03:49] LABS: Basophils Percent Auto 0.2 % (0.2-1.2); Eosinophils Percent Auto 0.1 % (0-4.4); Immature Granulocyte Absolute 0.34 K/mm3 (0.00-0.031); Immature Granulocyte Percent A 1.6 % (0-0.5); Lymphocytes Absolute Auto 1.87 K/mm3 (0.9-3.2); Lymphocytes Percent Auto 8.9 % (18.3-44.2); Mean Corpuscular HGB Conc 31.6 g/dl (32-36); Mean Corpuscular Hemoglobin 29.3 pg (26-34); Mean Corpuscular Volume 92.9 fl (80-100); Mean Platelet Volume 9.6 fl (7.4-10.4); Monocytes Absolute Auto 0.8 K/mm3 (0.1-0.6); Neutrophils Percent Auto 85.2 % (45.5-73.1); Platelet Count Result 422 k/mm3 (150-375); Red Blood Count 1.84 M/mm3 (4.6-6.20); Red Cell Distribution Width 13.3 % (11.5-14.5); White Blood Count 21.1 K/mm3 (4.5-10.0)
[2022-05-15 03:52] LABS: Hemoglobin 5.4 g/dL (14.0-18.0)
[2022-05-15 03:53] LABS: Hematocrit 17.1 % (42.0-52.0)
[2022-05-15 03:54] LABS: Glucose Point of Care 195 mg/dl (65-105)
[2022-05-15 04:03] LABS: INR 1.2; Prothrombin Time 14.8 Seconds (11.1-14.7)
[2022-05-15 04:04] LABS: Partial Thromboplastin Time 20.8 SECONDS (22.3-36.8)
[2022-05-15 04:08] LABS: Alanine Aminotransferase 36 U/L (6-50); Albumin Level 3.2 g/dL (3.5-5.1); Alkaline Phosphatase 101 U/L (38-126); Anion Gap 8 mmol/L (8-16); Aspartate Amino Transferase 103 U/L (17-59); Bilirubin,Total 0.6 mg/dL (0.2-1.3); Blood Urea Nitrogen 67 mg/dL (9-20); Calcium 11.3 mg/dL (8.4-10.2); Carbon Dioxide 24 mmol/L (22-30); Chloride 101 mmol/L (98-107); Estimated CRCL calculation 52 ml/min; Estimated Glomerular Filt Rate 49; Glucose 224 mg/dL (65-110); Lipase 78 U/L (23-300); Magnesium 1.7 mg/dL (1.6-2.3); Potassium 4.2 mmol/L (3.4-5.0); Sodium 133 mmol/L (137-145)
[2022-05-15 04:19] LABS: Lactic Acid Reflex 6.2 mmol/L (0.7-2.0)
--- NOTE | 2022-05-15 04:22 | PC.NURSE ---
Per MD Bradley, stop 2 Liters of NS and only infuse 1L bolus at this time.
[2022-05-15 04:39] LABS: Lactate Dehydrogenase 838 U/L (120-246)
[2022-05-15 04:40] LABS: Bilirubin,Total 0.6 mg/dL (0.2-1.3)
[2022-05-15 04:46] LABS: Transferrin 140 mg/dL (206-381)
[2022-05-15 04:50] LABS: Immature Reticulocyte Fraction 31.7 % (3.0-15.9); Iron 44 ug/dL (49-181); Reticulocyte Hemoglobin Conten 31.4 pg (28.2-35.7); Reticulocyte Percent 4.15 % (0.7-4.3); Reticulocytes Absolute 0.07 B/L (32.2-175.7)
[2022-05-15 04:53] LABS: Hematocrit 15.3 % (42.0-52.0); Hemoglobin 4.7 g/dL (14.0-18.0)
--- NOTE | 2022-05-15 04:58 | PC.NURSE ---
patient refusing straight cath at this time. encouraged to provide urine sample as soon as he can. patient agreeable to plan.
[2022-05-15 05:00] LABS: Percent Iron Saturation 18 % (20-50)
--- NOTE | 2022-05-15 05:01 | PC.NURSE ---
confirmed with label printing machinist, Sherry, type and screen has been received at this time.
--- NOTE | 2022-05-15 05:25 | PM.IMHP ---
H&P: HPI History of Present Illness Date/Time: 05/15/22 05:25 Chief Complaint: ABDOMINAL PAIN Narrative: This is a 56-year-old male with past medical history significant for tobacco dependence, recently diagnosed metastatic stomach cancer. Patient presents to the emergency room with complaints of abdominal pain, abdominal distention, back pain, patient has been taking ibuprofen and Tylenol at home with no relief, has been able to tolerate all his meals, denies any nausea or vomiting or bleeding according to patient this has been going on for 3-4 days until he finally decided to come to the emergency room. He was found to have a hemoglobin of 5 after some fluid resuscitation repeat hemoglobin was 4.7. A CT of abdomen and pelvis pending official reading shows multiple metastatic liver lesions and distended stomach. NG was placed and hooked to low intermittent suction while in the emergency room patient is been admitted for further evaluation management and treatment. Review of Systems Review of Systems: Abdominal distension, abdominal pain, back pain. Constitutional: Constitutional: Denies chills, Reports fatigue, Denies fever(s), Reports lethargy, Denies malaise and Denies weakness Eyes: Eyes: Denies change in vision ENT: Denies dysphagia and Denies odynophagia Cardiovascular: Cardiovascular: Denies chest pain, Denies irregular heart rhythm, Denies leg edema and Denies palpitations Respiratory: Respiratory: Denies chest congestion, Denies pain on inspiration and Denies dyspnea on exertion Gastrointestinal: Gastrointestinal: Reports abdominal pain, Denies melena, Denies hematochezia, Denies dyspepsia, Denies heartburn, Denies nausea and Denies vomiting Genitourinary: Genitourinary: Denies dysuria Musculoskeletal: Musculoskeletal: Reports back pain, Denies myalgias, Denies joint swelling and Denies muscle weakness Integumentary/Breasts: Skin/Breast: Denies rash Neurologic: Denies vertigo, Denies dizziness, Denies focal weakness and Denies Sensory deficit (Neuro) Psychiatric: Psychiatric: Reports no additional psychiatric complaints and Reports as per HPI Endocrine: Endocrine: Denies cold intolerance, Denies fatigue, Denies flushing, Denies heat intolerance, Denies polyphagia, Denies polydipsia and Denies palpitations Hematologic/Lymphatic: Hematologic/Lymphatic: Reports no additional hematologic/lymphatic complaints and Reports as per HPI Allergic/Immunologic: Allergic/Immunologic: Reports no additional allergic/immunologic complaints and Reports as per HPI [facility] Past Medical History Medical History HTN (hypertension) MALINI (obstructive sleep apnea) Overweight Smoker Stomach cancer Family History Family History Father Family history of cardiovascular disease Social History Social History Smoking packs per day: 1 Smoking cigarettes per day: 20.0 Years smoked: 20 Smoking pack-years: 20.00 Smoking status: Former smoker Tobacco type: cigarettes Second hand tobacco smoke exposure: No Alcohol intake: never Substance use: current Substance use type: marijuana Lack of Transportation: No Lack of Food: Never True Current Housing: I Have Housing Concerned About Future Housing: No Difficulty Paying Gas/Electric Bills: No Difficulty Paying for Meds: No Currently Unemployed: No Education: Trade/Vocational Certificate Difficulty w/ Childcare or Family Care: No Living arrangements: with family Spiritual care concerns: No Meds Home Medications and Allergies Home Medications Medication Instructions Recorded Confirmed Type hydrochlorothiazide 25 mg tablet 25 mg PO DAILY #90 tabs 10/20/21 05/15/22 Rx nadolol 20 mg tablet 20 mg PO DAILY #30 tabs 11/15/21 05/15/22 Rx levothyroxine 125 mcg tablet 125 mcg PO DAILY #90 tabs 0
[2022-05-15 05:47] LABS: Folic Acid 19.6 ng/mL (2.76->20)
--- NOTE | 2022-05-15 05:50 | ED.GENADULT ---
HPI - General Adult General Chief complaint: Back Pain/Injury Stated complaint: lower back pain Time Seen by Provider: 05/15/22 03:23 History of Present Illness HPI narrative: this is a 56-year-old male with a history of metastatic stomach cancer presenting to the ED with back pain x1. the pain is in the paraspinal muscles from the thoracic to the L-spine. Patient has taken ibuprofen and Tylenol with no relief. Patient has a known history of metastatic cancer but does not have any numbness tingling or weakness to his legs, urinary retention, bowel incontinence or saddle anesthesia. patient notes that he has had some melanotic stools. Patient has a history of blood clots and is supposed to be on Xarelto but has not taken in several weeks. Patient denies fevers, chest pain, difficulty breathingnausea vomiting or diarrhea. Related Data Allergies Allergy/AdvReac Type Severity Reaction Status Date / Time No Known Allergies Allergy Verified 05/10/22 14:48 [facility] Past Medical History Medical History HTN (hypertension) MALINI (obstructive sleep apnea) Overweight Smoker Stomach cancer Family History Family History Father Family history of cardiovascular disease Social History Social History Smoking packs per day: 1 Smoking cigarettes per day: 20.0 Years smoked: 20 Smoking pack-years: 20.00 Smoking status: Current every day smoker Tobacco type: cigarettes Second hand tobacco smoke exposure: Yes Alcohol intake: former Substance use: current Substance use type: marijuana Lack of Transportation: No Lack of Food: Sometimes True Current Housing: I Have Housing Concerned About Future Housing: No Difficulty Paying Gas/Electric Bills: No Difficulty Paying for Meds: No Currently Unemployed: No Education: Grade School Difficulty w/ Childcare or Family Care: No Living arrangements: with family Spiritual care concerns: No Exam Narrative: APPEARANCE: patient looks ill. He is pale Head: atraumatic. EYES: EOMI, conjunctiva pallor NOSE: Atraumatic NECK: Trachea midline RESPIRATORY: No increased rate of breathing, clear to auscultation CARDIOVASCULAR: RRR, patient is pale ABDOMINAL: Distended, nontender no guarding or rebound MUSCULOSKELETAL: No obvious deformities NEURO: Alert. Moving 4/4 extremities SKIN:: pale PSYCHIATRIC: Normal affect Course Vital Signs Vital signs: Vital Signs Temperature 98.2 F 05/15/22 03:18 Pulse Rate 85 05/15/22 03:18 Respiratory Rate 15 05/15/22 03:18 Blood Pressure 90/55 L 05/15/22 03:18 Pulse Oximetry 99 05/15/22 03:18 Oxygen Delivery Room Air 05/15/22 03:18 Temperature 97.8 F 05/15/22 05:49 Pulse Rate 65 05/15/22 05:49 Respiratory Rate 24 H 05/15/22 05:49 Blood Pressure 99/30 L 05/15/22 05:49 Pulse Oximetry 100 05/15/22 05:49 Oxygen Delivery Room Air 05/15/22 03:18 Medical Decision Making MDM Narrative Medical decision making narrative: -Presentation: this is a 56-year-old male presenting with back pain from the T to the L-spine. Additionally on arrival he was hypotensive and looks ill. Patient was fluid resuscitated and a full sepsis workup was ordered. The patient family told me that he had had multiple blood clots in his bowel before and he has been off his xarelto for weeks. A CTA was ordered to evaluate for vascular injuries as well as evaluation of his metastatic stomach cancer. -DDX includes but is not limited to: Stomach cancer, anemia, sepsis, PE -Co-morbidities complicating care: stomach cancer with metastasis, chronic pain, hypothyroid, hypertension -Social determinants of health: patient is unemployed -External Chart Review: none -Hx from independent Sources: girlfriend -Discussion of Management/Consult
[2022-05-15] MEDS: SODIUM CHLORIDE 0.9% IV 250 ML 30 ML IV CONT ×2 (05:59→14:01)
[2022-05-15] MEDS: TUBING, BLOOD PLUM PUMP TUBING 1 EACH XX (06:00)
[2022-05-15] MEDS: metroNIDAZOLE 500 MG/ISO 100ML 500 MG/100 ML BAG 100 MG IVPB (06:08)
[2022-05-15 06:14] LABS: Occult Blood Gastric Fluid Positive
[2022-05-15 06:16] LABS: Gastric Negative Control Negative; Gastric Positive Control Positive
[2022-05-15] MEDS: PANTOPRAZOLE SODIUM IV 40 MG VIAL 80 MG IV PUSH (06:38)
[2022-05-15 06:46] LABS: Influenza A QL RT-PCR Negative (Negative); Influenza B QL RT-PCR Negative (Negative); SARS-CoV-2 RNA PCR Negative
[2022-05-15 06:47] LABS: Reflex Lactic Acid Yes or No Add Lactic
--- NOTE | 2022-05-15 07:25 | ADMGEN ---
This patient, Matt Dennis, was admitted to Intensive Care Unit-10. Patient/family oriented to hospital policies and general routines including ID bracelet, bed and alarms, visiting hours, pain management, procedures, bathroom and other care routines, personal items, smoking policy, room service/diet, and visiting hours. Information on how to activate the Rapid Response Team has been discussed. Patient/Family are encouraged to report perceived risks to care and to ask questions if they do not understand what they are told or what they should do.
[2022-05-15 07:28] LABS: Lactic Acid 4.8 mmol/L (0.7-2.0)
[2022-05-15 08:29] LABS: Free T4 Free Thyroxine Reflex 1.04 ng/dL (0.78-2.19)
[2022-05-15 08:43] LABS: IFOB Positive Control Positive; Immunochemical Fecal Occult Bl Positive (N)
--- NOTE | 2022-05-15 12:33 | PM.IMPN ---
Progress Note: A&P Assessment and Plan (1) Upper GI bleed: Code(s): K92.2 - Gastrointestinal hemorrhage, unspecified Status: Acute Assessment and Plan: Patient has metastatic gastric cancer and now with upper GI bleed. Bleeding could be variceal, ulcer or most likely from his cancer CT scan showed hepatic mets, hepatic infarction, gastric distention, pericardial effusion S/p 4 units pRBCs, cont ngt, PPI BID, octreotide infusion Appreciate GI consult and transfer and pumphouse operator management, on waiting list for transfer to [facility] (2) Abdominal pain: Code(s): R10.9 - Unspecified abdominal pain Status: Acute Assessment and Plan: as above (3) KARLI (acute kidney injury): Code(s): N17.9 - Acute kidney failure, unspecified Status: Acute Assessment and Plan: Likely secondary to hypovolemia and hypotension Fluid resuscitation with transfusions, monitor, likely ATN from hypoperfusion (4) Hypotension: Code(s): I95.9 - Hypotension, unspecified Status: Acute Assessment and Plan: Due to blood loss anemia, vasopressor support as needed (5) Gastric outlet obstruction: Code(s): K31.1 - Adult hypertrophic pyloric stenosis Status: Acute Assessment and Plan: See above (6) Acute anemia: Code(s): D64.9 - Anemia, unspecified Status: Acute Assessment and Plan: d/t GIB (7) Gastric cancer: Code(s): C16.9 - Malignant neoplasm of stomach, unspecified Status: Acute Assessment and Plan: sees Dr Roberts (8) Malignant neoplasm of stomach metastatic to liver: Code(s): C16.9 - Malignant neoplasm of stomach, unspecified; C78.7 - Secondary malignant neoplasm of liver and intrahepatic bile duct Status: Acute Assessment and Plan: See above (9) Right groin pain: Code(s): R10.31 - Right lower quadrant pain Status: Acute (10) Tobacco use: Code(s): Z72.0 - Tobacco use Status: Acute (11) Type 2 diabetes mellitus: Code(s): E11.9 - Type 2 diabetes mellitus without complications Status: Acute (12) MALINI (obstructive sleep apnea): Code(s): G47.33 - Obstructive sleep apnea (adult) (pediatric) Status: Acute Plan DVT prophylaxis with SCDs GI prophylaxis with PPI Code status full code NPO Subjective Date/time seen: 05/15/22 12:33 Exam Narrative: General: Pt is alert awake and in NAD Lungs/Chest: Trachea central Clear BS B/L, No crackles or wheezing. Cardiac: RRR. Normal S1 S2. No murmurs Circulation: Pedal pulses are intact and symmetrical. Abdomen: Normal bowel sounds.. Soft. NT. ND. Patient has NG tube with coffee-ground aspiration Extremities: Bilateral lower extremity pitting edema : [place] in place Neurologic: Follows commands. Moves all 4 extremities PERRL AO x3 Skin: No Rash Objective Data Vital Signs Vital Signs: Vital Signs - 24 hr 05/15/22 03:18 05/15/22 03:21 05/15/22 03:23 Temperature 98.2 F Pulse Rate 85 Respiratory Rate 15 Blood Pressure 90/55 L 83/25 L 86/57 L Pulse Oximetry 99 Oxygen Delivery Room Air 05/15/22 03:25 05/15/22 03:27 05/15/22 03:30 Temperature Pulse Rate 79 78 Respiratory Rate 17 20 Blood Pressure 90/55 L Pulse Oximetry 100 Oxygen Delivery 05/15/22 03:31 05/15/22 03:34 05/15/22 03:45 Temperature Pulse Rate 75 88 78 Respiratory Rate 21 H 20 24 H Blood Pressure 82/52 L 88/75 L Pulse Oximetry Oxygen Delivery 05/15/22 03:46 05/15/22 04:00 05/15/22 04:02 Temperature Pulse Rate 80 70 69 Respiratory Rate 25 H 24 H 23 H Blood Pressure 96/57 L 112/23 L Pulse Oximetry Oxygen Delivery 05/15/22 04:15 05/15/22 04:16 05/15/22 05:31 Temperature 97.6 F Pulse Rate 70 70 75 Respiratory Rate 18 25 H 21 H Blood Pressure 96/57 L 71/60 L Pulse Oximetry 100 Oxygen Delivery 05/15/22 05:49 05/15/22 06:29 05/15/22 06:45 Temperature 97.8
[2022-05-15 12:43] LABS: Total Triiodothyronine (T3) 0.67 NG/ML (0.97-1.69)
[2022-05-15] MEDS: PANTOPRAZOLE SODIUM IV 40 MG VIAL IV PUSH (14:01)
[2022-05-15] MEDS: SODIUM CHLORIDE 0.9% IV 250 ML 500 ML (14:04)
--- NOTE | 2022-05-15 14:20 | WPDCNINT ---
Assessment and Plan Assessment and plan (1) Upper GI bleed: Code(s): K92.2 - Gastrointestinal hemorrhage, unspecified Status: Acute Assessment and Plan: Patient has a metastatic gastric cancer and now has upper GI bleed. Bleeding could be variceal, ulcer or most likely from his cancer CT scan on admission showed IMPRESSION:? Dramatic enlargement of hepatic metastases and right adrenal metastasis since 03/30/2022 Interval right hepatic infarction since 03/30/2022 There is prominent gastric distention since 03/30/2022, likely due to gastric outlet obstruction/malignancy; there is prominent fluid distention/dilatation throughout the thoracic esophagus Interval mild pericardial effusion since 03/30/2022 Small pericardial effusion since 03/30/2022 Cholelithiasis Severe left renal atrophy Right renal cysts Mild colonic diverticulosis 4 mm superior segment right lower lobe pulmonary nodule Patient has received 4 units of PRBC Check hemoglobin now and every 4 hours IV PPI q.12 hours IV octreotide infusion NG tube is in place to suction, NPO Coags were normal GI has been consulted I will try to transfer patient to a tertiary facility where facility for angiogram and surgical intervention is available and may be having hemorrhage a complication from gastric cancer (2) Malignant neoplasm of stomach metastatic to liver: Code(s): C16.9 - Malignant neoplasm of stomach, unspecified; C78.7 - Secondary malignant neoplasm of liver and intrahepatic bile duct Status: Acute Assessment and Plan: See above (3) Gastric outlet obstruction: Code(s): K31.1 - Adult hypertrophic pyloric stenosis Status: Acute Assessment and Plan: See above (4) KARLI (acute kidney injury): Code(s): N17.9 - Acute kidney failure, unspecified Status: Acute Assessment and Plan: Likely secondary to hypovolemia and hypotension He appears to have chronic kidney disease from his past labs CT abdomen pelvis reviewed showed no hydronephrosis but shows severe left renal atrophy. I do not see any mention of renal artery stenosis on the CTA. Will check ultrasound and Doppler Check CK urine electrolytes Monitor urine output electrolytes and creatinine (5) Hypotension: Code(s): I95.9 - Hypotension, unspecified Status: Acute Assessment and Plan: Secondary to hypovolemia blood loss Lactic acid improving Patient received 1 L of fluid bolus and 4 units of PRBC Start maintenance IV fluids Levophed infusion to maintain mean arterial pressure if needed Plan DVT prophylaxis -SCDs Stress ulcer prophylaxis -IV PPI Nutrition - npo Code Status - Full Code I spoke to patient and patient's at bedside explained them patient's current status, current workup and treatment plan and my recommendation to transfer to a tertiary facility. They verbalized understanding and agreed to transfer and stated that they prefer [facility] if possible Total Critical Care Time - 45 minutes Due to a high probability of clinically significant, life threatening deterioration, the patient required my highest level of preparedness to intervene emergently and I personally spent this critical care time directly and personally managing the patient. This critical care time included obtaining a history; examining the patient; pulse oximetry; ordering and review of studies; arranging urgent treatment with development of a management plan; evaluation of patient's response to treatment; frequent reassessment; and discussions with other providers. It was exclusive of separately billable procedures and treating other patients and teaching time. Please see Assessment and Plan section and the rest of the note for further information on patient assessment and treatment Dot Compliance Manager Consult Note Consult date: 05/15/22 Reason for consult: Upper GI bleed HPI: Matt Dennis is a 56 year old male with recent diagnosis of metastatic
[2022-05-15 14:49] LABS: Hematocrit 30.2 % (42.0-52.0); Hemoglobin 10.1 g/dL (14.0-18.0)
[2022-05-15 15:00] LABS: Creatine Kinase 143 U/L (55-170); Lactic Acid Reflex 1.5 mmol/L (0.7-2.0)
--- NOTE | 2022-05-15 15:10 | P.PNCROSS_ITS ---
Event Note Event Note Event Note: I called and spoke to [facility] transfer center and later spoke to weaving inspector at [facility] Dr. Slade. I discussed case with her and reason for transfer. She is accepted the patient and patient will be transferred once bed is available
--- NOTE | 2022-05-15 15:10 | PM.EVENT ---
Event Note Event Note Event Note: I called and spoke to [facility] transfer center and later spoke to digital production operator at [facility] Dr. Slade. I discussed case with her and reason for transfer. She is accepted the patient and patient will be transferred once bed is available
[2022-05-15] MEDS: MORPHINE SULFATE (*CRX) 4 MG/ML INJ IV PUSH (16:06)
--- NOTE | 2022-05-15 17:02 | PC.NURSE ---
Patient arrived to the unit @1515 , bed assigned at [facility] room 3504, report called to RN MARY . Right subclavian port accessed , 4 mg of morphine administered for 10/10 backpain. Patient and significant other ASHLEY updated on POC and all questions answered. LEVOPHED and OCTREOTIDE GTTS sent with patient. EMS arrived @1440.
[2022-05-20 10:34] LABS: Haptoglobin 141 mg/dL (43-212)
[2022-05-21 18:59] LABS: Soluble Transferrin Receptor 1.29 mg/L (0.76-1.76)
--- NOTE | 2022-06-01 20:45 | PM.TDS ---
Transfer Discharge Sum: Prov Provider Date of admission: 05/15/22 06:16 Primary care physician: Jalen Pedraza DO Admitting clinician: Vamshi Todd MD Consults: 05/15/22 Consult to Physician Routine Comment: Consulting Provider: Anders Nicolas Reason for consultation: GI bleed Low HGB Has provider been notified: Yes DS: Admitting Diagnosis Discharge Date 05/15/22 Admitting Diagnosis Weakness DS: Discharge Diagnosis Discharge Diagnosis (1) Gastric outlet obstruction: Code(s): K31.1 - Adult hypertrophic pyloric stenosis Status: Acute Assessment and Plan: Admit to regular medical floor NPO NG to low intermittent suction Supportive care Continue to monitor (2) Gastric cancer: Code(s): C16.9 - Malignant neoplasm of stomach, unspecified Status: Acute Assessment and Plan: Patient is in the midst of starting chemotherapy according to history (3) Malignant neoplasm of stomach metastatic to liver: Code(s): C16.9 - Malignant neoplasm of stomach, unspecified; C78.7 - Secondary malignant neoplasm of liver and intrahepatic bile duct Status: Acute Assessment and Plan: Found to have multiple metastasis to the liver Worsened (4) Abdominal pain: Code(s): R10.9 - Unspecified abdominal pain Status: Acute Assessment and Plan: Supportive care Likely secondary to distention, CT of abdomen and pelvis reviewed (5) Acute anemia: Code(s): D64.9 - Anemia, unspecified Status: Acute Assessment and Plan: Due to acute LGI bleed Transfuse as needed (6) Right groin pain: Code(s): R10.31 - Right lower quadrant pain Status: Acute Assessment and Plan: Supportive care Pain management (7) Tobacco use: Code(s): Z72.0 - Tobacco use Status: Acute Assessment and Plan: Nicotine patch as needed (8) Type 2 diabetes mellitus: Code(s): E11.9 - Type 2 diabetes mellitus without complications Status: Acute Assessment and Plan: Insulin sliding scale as needed Patient is NPO (9) MALINI (obstructive sleep apnea): Code(s): G47.33 - Obstructive sleep apnea (adult) (pediatric) Status: Acute Assessment and Plan: CPAP at nighttime Transfer Discharge Sum: Med Medications Active and Home Medications: Home Medications hydrochlorothiazide 25 mg tablet 25 mg PO DAILY #90 tabs 10/20/21 [Rx Confirmed 05/15/22] nadolol 20 mg tablet 20 mg PO DAILY #30 tabs 11/15/21 [Rx Confirmed 05/15/22] levothyroxine 125 mcg tablet 125 mcg PO DAILY #90 tabs 12/14/21 [Rx Confirmed 05/15/22] atorvastatin 20 mg tablet 20 mg PO DAILY #90 tabs 12/15/21 [Rx Confirmed 05/15/22] pantoprazole 40 mg tablet,delayed release 40 mg PO QAM #90 tabs 12/15/21 [Rx Confirmed 05/15/22] lisinopril 40 mg tablet 40 mg PO DAILY #90 tabs 01/14/22 [Rx Confirmed 05/15/22] rivaroxaban 20 mg tablet (Xarelto) 20 mg PO DAILY #30 tabs 01/14/22 [Rx Confirmed 05/15/22] hydrocodone 5 mg-acetaminophen 325 mg tablet 1 tablet PO Q12H #30 tabs 04/07/22 [Rx Confirmed 05/15/22] Transfer Discharge Sum: Hosp Hospital Course Hospital course: Matt Dennis is a 56 year old male with recently diagnosed metastatic stomach cancer presenting with abdominal pain and inability to tolerate p.o. intake. Hemoglobin was 4.7 and transfusions were initiated. NG was placed and transfer was arranged tertiary care facility. GI bleed thought to be variceal ulcerative or most likely from his tumor. A bed was found and he was transferred to a tertiary care facility per chart. Time Spent with Patient Time attestation: Total time spent providing and/or coordinating transfer services:
== END 2022-05-15 14:50 | disposition short-term general hospital (02) | DRG 375 ==
LOC: ANHED 06:24 → ANHICU 18:39 → ANHIMU 05-17 14:12
PROVIDERS: Internal Medicine; Admitting Provider Internal Medicine; Emergency Provider Emergency Medicine; PCP Internal Medicine; Visit Provider Student in an Organized Health Care Education/Training Program
DX: C16.9 Malignant neoplasm of stomach, unspecified (principal); C78.7 Secondary malignant neoplasm of liver and intrahepatic bile duct; K92.2 Gastrointestinal hemorrhage, unspecified; N17.9 Acute kidney failure, unspecified; K31.1 Adult hypertrophic pyloric stenosis; D62 Acute posthemorrhagic anemia; E11.9 Type 2 diabetes mellitus without complications; I10 Essential (primary) hypertension; N26.1 Atrophy of kidney (terminal); I95.9 Hypotension, unspecified; G47.33 Obstructive sleep apnea (adult) (pediatric); F17.210 Nicotine dependence, cigarettes, uncomplicated; Z20.822 Contact with and (suspected) exposure to COVID-19; Z79.01 Long term (current) use of anticoagulants; Z86.718 Personal history of other venous thrombosis and embolism; Z91.14 Patient's other noncompliance with medication regimen
CPT/HCPCS: 36415; 36430; 71275; 74174; 80053; 82247; 82248; 82271; 82274; 82550; 82607; 82728; 82746; 82948; 83010; 83540; 83550; 83605; 83615; 83690; 83735; 83986; 84238; 84439; 84443; 84466; 84480; 85014; 85018; 85025; 85046; 85610; 85730; 86850; 86880; 86900; 86901; 86920; 86923; 87040; 87636; 93005; 96361; 96374; 96375; 99285; C9113; J0692; J1170; J2270; J2354; J7030; J7050; P9016; Q9967

== ENCOUNTER 2022-06-02 14:17 | Observation (INO) | payer OTHER, SELFPAY ==
[2022-06-02] VITALS (19 sets, daily range): BP systolic 97–127; BP diastolic 53–69; PULSE 81–92; RESP 16–21; TEMP 36.4–37.2; O2SAT 95–100
--- NOTE | ~2022-06-02 | CT_ITS ---
EXAMINATION: CT brain wo con INDICATION: Altered mental status COMPARISON: 03/30/2022 TECHNIQUE: Standard unenhanced head CT. The dose-length product (DLP) was 605.33 mGy-cm. The mA was a djusted according to patient size. Iterative reconstruction technique was employed. FINDINGS: There is no intracranial hemorrhage, acute infarction, or abnormal mass lesion. The ventric les are normal. There is no abnormal mass effect or midline shift. The garcia-white matter differentiat ion is normal. The basal cisterns are patent. The orbits are normal. The paranasal sinuses, mastoids and calvarium are normal. IMPRESSION: 1. No acute intracranial abnormality. Reviewed, dictated and finalized at location F. MENT MANAGER
--- NOTE | ~2022-06-02 | CT_ITS ---
EXAMINATION: CTA chest PE protocol DATE: 06/02/2022 22:24 INDICATION: Altered mental status TECHNIQUE: Computed tomography angiography (CTA) of the chest was performed with 100 mL Omnipaque-350 intravenous contrast timed to evaluate the pulmonary arteries. Coronal maximum intensity projection 3D-reconstructions were created by the technologist. The dose-length product (DLP) was 389.24 mGy-cm. Automated exposure control and iterative reconstruction technique were employed. COMPARISON: 05/15/2022 FINDINGS: The pulmonary arteries are well-opacified. No pulmonary embolism is identified. A right int ernal jugular Port-A-Cath ends with its tip in the proximal right atrium. The heart size is normal. T here is a small right pleural effusion. No pneumothorax is identified. There is a small pericardial e ffusion. Again seen is irregularity of the stomach at the gastroesophageal junction, likely reflectin g patient's gastric malignancy. Esophagus is fluid-filled in its mid and distal portions. Liver metas tases appear stable to decreased in size accounting for differences in phase of contrast. There is mi ld dependent atelectasis. IMPRESSION: 1. No pulmonary embolus identified. 2. Small right pleural effusion. 3. Irregularity at the gastroesophageal junction, likely patient's known gastric malignancy. 4. Liver metastases stable to decreased in size accounting for differences in phase of contrast. Reviewed, dictated and finalized at location F. CH BOILER PACKER IMPRESSION: 1. No pulmonary embolus identified. 2. Small right pleural effusion. 3. Irregularity at the gastroesophageal junction, likely patient's known gastri c malignancy. 4. Liver metastases stable to decreased in size accounting for differences in p hase of contrast.
--- NOTE | 2022-06-02 14:54 | ECG_ITS ---
Measurements Intervals [place] Rate: 89 P: 66 UT: 145 QRS: -26 QRSD: 98 T: 60 QT: 355 QTc: 432 Interpretive Statements SINUS RHYTHM ANTERIOR INFARCT, AGE INDETERMINATE BASELINE ARTIFACT- I, II, III, AVR, AVL, AVF, V4 ABNORMAL ECG COMPARED TO ECG 05/15/2022 03:57:15 ANTERIOR INFARCT IS NOW PRESENT Electronically Signed On 06-02-2022 15:40:58 NETWORK SERVICES PROJECT MANAGER by Alpesh Maciel D.O.
[2022-06-02 15:15] LABS: Basophils Percent Auto 0.5 % (0.2-1.2); Eosinophils Absolute Auto 0.1 K/mm3 (0-0.3); Eosinophils Percent Auto 1.2 % (0-4.4); Hematocrit 23.7 % (42.0-52.0); Hemoglobin 7.4 g/dL (14.0-18.0); Immature Granulocyte Absolute 0.03 K/mm3 (0.00-0.031); Immature Granulocyte Percent A 0.7 % (0-0.5); Lymphocytes Percent Auto 26.6 % (18.3-44.2); Mean Corpuscular HGB Conc 31.2 g/dl (32-36); Mean Corpuscular Hemoglobin 27.8 pg (26-34); Mean Corpuscular Volume 89.1 fl (80-100); Mean Platelet Volume 9.8 fl (7.4-10.4); Monocytes Absolute Auto 0.9 K/mm3 (0.1-0.6); Neutrophils Absolute Auto 2.1 K/mm3 (1.3-6.7); Nucleated Red Blood Cells Perc 0.5 % (0.0-0.2); Platelet Count Result 461 k/mm3 (150-375); Red Blood Count 2.66 M/mm3 (4.6-6.20); Red Cell Distribution Width 14.4 % (11.5-14.5); White Blood Count 4.1 K/mm3 (4.5-10.0)
[2022-06-02 15:25] LABS: Alanine Aminotransferase 20 U/L (6-50); Albumin Level 2.9 g/dL (3.5-5.1); Alkaline Phosphatase 106 U/L (38-126); Anion Gap 4 mmol/L (8-16); Aspartate Amino Transferase 34 U/L (17-59); Bilirubin,Total 0.6 mg/dL (0.2-1.3); Blood Urea Nitrogen 8 mg/dL (9-20); Calcium 8.1 mg/dL (8.4-10.2); Carbon Dioxide 29 mmol/L (22-30); Chloride 92 mmol/L (98-107); Estimated CRCL calculation 94 ml/min; Estimated Glomerular Filt Rate > 60; Glucose 102 mg/dL (65-110); Potassium 3.4 mmol/L (3.4-5.0); Sodium 125 mmol/L (137-145)
[2022-06-02 15:27] LABS: INR 1.3
[2022-06-02 15:28] LABS: Partial Thromboplastin Time 31.1 SECONDS (22.3-36.8)
[2022-06-02 15:34] LABS: Platelet Estimate Adequate (Adequate)
[2022-06-02 15:35] LABS: Hypochromasia 1+ (NORMAL); Poikilocytosis 1+ (NORMAL); Schistocytes Rare (NORMAL); Stomatocytes 1+ (NORMAL)
--- NOTE | 2022-06-02 19:41 | PC.NURSE ---
Triage note reviewed and confirmed. Pt here w/ s/o w/ cc of increased confusion x this AM. Spouse at bedside states pt usually presents like this when he was admitted for a GI bleed. Spouse concerned for another GI bleed. No blood in stool/urine or no vomiting. Pt denies any pain. Pt a&ox2 (unaware of place; says he's at [facility].)
--- NOTE | 2022-06-02 19:51 | ED.AMS ---
HPI - Altered Mental Status General Chief Complaint: Altered Mental Status <CHELSI Chery Last Filed: 06/03/22 01:54> Stated Complaint: CONFUSION, STAGE IV STOMACH CANCER <CHELSI Chery Last Filed: 06/03/22 01:54> Time Seen by Provider: 06/02/22 19:50 <CHELSI Chery Last Filed: 06/03/22 01:54> History of Present Illness HPI narrative: Patient is a 56-year-old male with a history of stomach cancer here with his for evaluation of confusion today. Patient's states that he has been acting off all day, using objects wrong and has been excessively fatigued. He was recently hospitalized at [facility] for GI bleed and underwent esophageal banding. He has had one dose of chemotherapy on may 19. Patient is now back to his baseline according to and patient, states that he just feels really tired and has not been able to get much sleep over the past couple weeks. States that he required 12 units of blood at [facility] for GI bleed. He denies any hemoptysis, blood in his stool, abdominal pain, nausea or vomiting, fevers or chills. He is on a liquid diet. <CHELSI Chery Last Filed: 06/03/22 01:54> Related Data Allergies/Adverse Reactions: Allergies Allergy/AdvReac Type Severity Reaction Status Date / Time No Known Allergies Allergy Verified 05/10/22 14:48 <CHELSI Chery Last Filed: 06/03/22 01:54> Review of Systems Review of Systems: Gen.: Reports confusion Eyes: Denies eye pain or visual change ENT: Denies congestion Respiratory: Denies shortness of breath or cough CV: Denies chest pain or palpitations GI: Denies abdominal pain nausea, emesis or diarrhea denies burning, urgency, frequency or hematuria Musculoskeletal: Denies back pain or muscle pain Neuro: Denies numbness, tingling, weakness or focal weakness Skin: Denies rash Except as documented, all other systems reviewed and negative <CHELSI Chery Last Filed: 06/03/22 01:54> [facility] Past Medical History Medical History: Medical History HTN (hypertension) MALINI (obstructive sleep apnea) Overweight Smoker Stomach cancer <Mary Jones PA-C - Last Filed: 06/03/22 01:54> Family History Family History: Family History Father Family history of cardiovascular disease <Mary Jones PA-C - Last Filed: 06/03/22 01:54> Social History Social History: Social History Smoking packs per day: 1 Smoking cigarettes per day: 20.0 Years smoked: 20 Smoking pack-years: 20.00 Smoking status: Former smoker Tobacco type: cigarettes Second hand tobacco smoke exposure: No Alcohol intake: never Substance use: current Substance use type: marijuana Lack of Transportation: No Lack of Food: Never True Current Housing: I Have Housing Concerned About Future Housing: No Difficulty Paying Gas/Electric Bills: No Difficulty Paying for Meds: No Currently Unemployed: No Education: Trade/Vocational Certificate Difficulty w/ Childcare or Family Care: No Living arrangements: with family Spiritual care concerns: No <Mary Jones PA-C - Last Filed: 06/03/22 01:54> Exam Narrative: APPEARANCE: Well appearing, no pain in distress, well-nourished. Head: Normocephalic and atraumatic. EYES: PERRLA/EOMI, conjunctivae clear NOSE: No nasal drainage EARS: External ear normal in appearance THROAT: Oropharynx is clear. Mucous membranes are moist. NECK: Supple. No adenopathy, no masses. RESPIRATORY: Airway patent, respirations nonlabored. Clear to auscultation bilaterally, no rales, rhonchi, wheezing. CARDIOVASCULAR: Regular rate and rhythm without murmurs, rubs, or gallops. ABDOMINAL: Normoactive bowel sounds.
[2022-06-02 20:05] LABS: Appearance Urine Clear (Clear); Bacteria Urine None Seen /hpf; Bilirubin Urine 1+ (Negative); Blood Urine Negative (Negative); Color Urine Dark Yellow (Yellow); Glucose Urine UA Negative (Negative); Ketones Urine Trace mg/dL (Negative); Leukocyte Esterase Ur Negative LEU/UL (Negative); Nitrate Urine Negative (Negative); Non Pathogenic Casts 0-2; Protein Urine 1+ mg/dL (Negative); RBC Urine 0-2 /hpf (0-2); Specific Grav Ur 1.025 (1.001-1.035); Squamous Epithelial Cell Urine None seen /hpf (Few); WBC Urine 0-5 /hpf
[2022-06-02 20:19] LABS: Add Urine Microscopic? YES
--- NOTE | 2022-06-02 20:30 | PC.NURSE ---
contacted lab, spoke w/ Cesar to add on magnesium and trop I.
[2022-06-02] MEDS: SODIUM CHLORIDE 0.9% IV 1,000 ML 999 ML IV CONT (20:33)
[2022-06-02 20:42] LABS: Magnesium 1.4 mg/dL (1.6-2.3)
--- NOTE | 2022-06-02 21:18 | ECG_ITS ---
Measurements Intervals [place] Rate: 89 P: 69 DC: 136 QRS: -30 QRSD: 105 T: 52 QT: 357 QTc: 435 Interpretive Statements SINUS RHYTHM INCOMPLETE RIGHT BUNDLE BRANCH BLOCK ANTERIOR INFARCT, AGE INDETERMINATE ABNORMAL ECG COMPARED TO ECG 06/02/2022 15:04:19 NO SIGNIFICANT CHANGES Electronically Signed On 06-03-2022 6:41:34 RADIOLOGY TECHNOLOGIST by Alpesh Maciel D.O.
[2022-06-02] MEDS: MAGNESIUM SULF 1 GM/D5W 100 ML 1 GM/100 ML BAG IVPB (21:43)
--- NOTE | 2022-06-02 22:06 | PC.NURSE ---
contacted lab, spoke w/ edna, to add on bnp.
--- NOTE | 2022-06-02 22:10 | PM.IMHP ---
H&P: HPI History of Present Illness Date/Time: 06/02/22 22:10 Chief Complaint: 56 years old male with past medical history of stomach cancer GI bleed hypertension CHF on diuretics hydrochlorothiazide presented to the hospital with worsening confusion started today intermittent no aggravating or relieving factor no weakness no sensory loss patient denies fever or chills at the ER mental status returned to baseline patient stated that he was not sleeping for the past 2 weeks since he had chemotherapy 2 weeks ago for his stomach cancer also patient was recently admitted to [facility] for GI bleed treated with EGD according to the patient his hemoglobin today is improving patient denies any black stool vomiting of blood at the ER UA was negative no leukocytosis no fever patient was found to have hypomagnesemia elevated troponin and acute hyponatremia sodium was 125 patient was admitted to the hospital for further evaluation and treatment of hypoglycemia hyponatremia and elevated troponin Review of Systems Review of Systems: Twelve system review was done negative except bilateral lower extremity edema PMFSH Past Medical History Medical History HTN (hypertension) MALINI (obstructive sleep apnea) Overweight Smoker Stomach cancer Family History Family History Father Family history of cardiovascular disease Social History Social History Smoking packs per day: 1 Smoking cigarettes per day: 20.0 Years smoked: 20 Smoking pack-years: 20.00 Smoking status: Former smoker Tobacco type: cigarettes Second hand tobacco smoke exposure: No Alcohol intake: never Substance use: current Substance use type: marijuana Lack of Transportation: No Lack of Food: Never True Current Housing: I Have Housing Concerned About Future Housing: No Difficulty Paying Gas/Electric Bills: No Difficulty Paying for Meds: No Currently Unemployed: No Education: Trade/Vocational Certificate Difficulty w/ Childcare or Family Care: No Living arrangements: with family Spiritual care concerns: No Meds Home Medications and Allergies Home Medications Medication Instructions Recorded Confirmed Type hydrochlorothiazide 25 mg tablet 25 mg PO DAILY #90 tabs 10/20/21 05/15/22 Rx nadolol 20 mg tablet 20 mg PO DAILY #30 tabs 11/15/21 05/15/22 Rx levothyroxine 125 mcg tablet 125 mcg PO DAILY #90 tabs 12/14/21 05/15/22 Rx atorvastatin 20 mg tablet 20 mg PO DAILY #90 tabs 12/15/21 05/15/22 Rx pantoprazole 40 mg tablet,delayed 40 mg PO QAM #90 tabs 12/15/21 05/15/22 Rx release lisinopril 40 mg tablet 40 mg PO DAILY #90 tabs 01/14/22 05/15/22 Rx rivaroxaban 20 mg tablet (Xarelto) 20 mg PO DAILY #30 tabs 01/14/22 05/15/22 Rx hydrocodone 5 mg-acetaminophen 325 1 tablet PO Q12H #30 tabs 04/07/22 05/15/22 Rx mg tablet Allergies Allergy/AdvReac Type Severity Reaction Status Date / Time No Known Allergies Allergy Verified 05/10/22 14:48 Vital Signs Vital Signs - 24 hr 06/02/22 14:48 06/02/22 17:19 Temperature 98.9 F 97.6 F Pulse Rate 83 85 Respiratory Rate 16 16 Blood Pressure 127/62 114/62 Pulse Oximetry 99 100 Oxygen Delivery Room Air Exam Narrative: GENERAL: Well appearing, well-nourished, non-toxic, in no acute distress. HEAD: Normocephalic, atraumatic. NECK: Supple. No adenopathy, no masses. RESPIRATORY: Decreased air entry bilateral. CARDIOVASCULAR: Regular rate and rhythm without murmurs, rubs, or gallops. Peripheral pulses 2+ and equal bilaterally. ABDOMINAL: Soft, nontender, nondistended, no hepatosplenomegaly. Normoactive BS. MUSCULOSKELETAL: Positive bilateral lower extremity edema SKIN: Warm, dry, normal color. No rashes. NEURO: A&O X3. Speech clear. Cranial nerves grossly intact. No sensory loss PSYCHIATRIC: Appropriate mo
[2022-06-02 22:31] LABS: Influenza A QL RT-PCR Negative (Negative); Influenza B QL RT-PCR Negative (Negative); SARS-CoV-2 RNA PCR Negative
[2022-06-02] MEDS: FUROSEMIDE INJ 40 MG/4 ML VIAL 20 MG IV PUSH (22:42)
[2022-06-02 22:58] LABS: Ammonia < 9 umol/L (9-30)
[2022-06-02 23:03] LABS: Potassium Urine Random 43.3 meq/L
[2022-06-02 23:08] LABS: NT Pro B Type Natriuretic Pept 3880 pg/mL (19.9-100)
[2022-06-02 23:13] LABS: Sodium 123 mmol/L (137-145)
[2022-06-02 23:38] LABS: Procalcitonin 0.1 ng/mL
[2022-06-03] VITALS (18 sets, daily range): BP systolic 115–128; BP diastolic 56–74; PULSE 82–92; RESP 14–21; TEMP 36.3–36.6; O2SAT 98–100; BMI 25.8
--- NOTE | 2022-06-03 00:20 | PC.NURSE ---
Pt resting comfortably in bed, NAD, updated pt on plan of care, respirations even and unlabored.
--- NOTE | 2022-06-03 00:56 | PC.NURSE ---
pt resting comfortably in bed, NAD, updated pt on plan of care.
--- NOTE | 2022-06-03 01:11 | PC.NURSE ---
per [facility] patient does not wanna go to [facility]
--- NOTE | 2022-06-03 02:09 | PC.NURSE ---
Ariadna notified of pt not coming
--- NOTE | 2022-06-03 04:42 | ADMIMU ---
This patient, Matt Dennis, was admitted to IMU status, and placed in IMU Room 211-01. Patient/family oriented to hospital policies and general routines including ID bracelet, bed and alarms, visiting hours, pain management, procedures, bathroom and other care routines, personal items, smoking policy, room service/diet, and visiting hours. Valuables list has been completed. Information on how to activate the Rapid Response Team has been discussed. Patient/Family are encouraged to report perceived risks to care and to ask questions if they do not understand what they are told or what they should do.
--- NOTE | 2022-06-03 05:52 | PC.NURSE ---
During admission assessment, patient states he does not want resuscitated if his heart stops, he does not want cpr, he does not want chest compressions, he does not want put on a ventilator, he does not want medications to help restart his heart. He wants us to let him . Dr. Galindo notified. Dr. Galindo ordered a hospice consult. This nurse expressed concern that patient is expressing anger for how long he was in the ER and that he is not completely cooperative...stating, leave me alone...I just want to sleep . This nurse's concern that he may be saying this in a moment of anger. Dr. Galindo states this is a good reason to have the hospice consult so that everyone can get together and make the decision. Order has been followed through with, report will be given to day shift nurse.
[2022-06-03 06:03] LABS: Total Protein Urine Random 21 mg/dL
--- NOTE | 2022-06-03 09:24 | PM.DS ---
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: Code(s): C16.9 - Malignant neoplasm of stomach, unspecified; C78.7 - Secondary malignant neoplasm of liver and intrahepatic bile duct Status: Acute (4) Essential (primary) hypertension: Code(s): I10 - Essential (primary) hypertension Status: Acute (5) Type 2 diabetes mellitus: Code(s): E11.9 - Type 2 diabetes mellitus without complications Status: Acute (6) Hx of duodenal ulcer: Code(s): Z87.19 - Personal history of other diseases of the digestive system Status: Acute (7) Hyperlipidemia: Code(s): E78.5 - Hyperlipidemia, unspecified Status: Acute (8) Hypothyroidism: Code(s): E03.9 - Hypothyroidism, unspecified Status: Acute (9) Mesenteric vein thrombosis: Code(s): K55.069 - Acute infarction of intestine, part and extent unspecified Status: Acute (10) MALINI (obstructive sleep apnea): Code(s): G47.33 - Obstructive sleep apnea (adult) (pediatric) Status: Acute (11) Acute hyponatremia: Code(s): E87.1 - Hypo-osmolality and hyponatremia Status: Acute (12) Chronic hemorrhagic anemia: Code(s): D50.0 - Iron deficiency anemia secondary to blood loss (chronic) Status: Acute (13) Hypomagnesemia: Code(s): E83.42 - Hypomagnesemia Status: Acute DS: Summary Hospital Course Reason for hospitalization: 56yo male with metastatic stomach cancer here for altered mental status. Please see H&P for details. Hospital Course: In the ER, his mental status returned to baseline. Patient stated that he had not slept well for the past 2 weeks since starting chemotherapy. He was recently transferred to [facility] for GI bleed treated with EGD and received multiple transfusions. Hgb 7.4 which is improved per patient. WBC 4100 felt related to chemotherapy. Sodium was 125 and dropped to 123 on repeat. Magnesium was low. Ammonia was <9. Troponin was elevated at 3.0 but flat. Procalcitonin was 0.1. UA was clear. Influenza and COVID negative. Head CT showing no acute findings. CT Abd/pelvis showing no PE but small right pleural effusion and irregularity at the GE junction. Liver mets seem smaller. EKG showing NSR with anterior infarct age indeterminant but new since last EKG from 05/15/22. Patient was admitted to IMU. Cardiology and Nephrology consulted. Patient refused to remain hospitalized. 'I am dying and I just want to go home'. 'You are running the same tests and finding more stuff'. He became irate when trying to discuss risks of signing out against medical advise specifically in regards to the elevated Troponin and concern for underlying cardiac disease. He would interrupt frequently and talk over the provider. He demanded the port-a-cath access be removed so he can leave. Patient signed out against medical advise on 06/03/22. Status at Discharge Cognitive/behavioral status at discharge: stable Time Spent with Patient Time attestation: Total time spent providing and/or coordinating discharge services: 31 minutes Specific discharge activities: Review of the chart, discussion with staff, trying to educate patient about risks and charting Exam Narrative: AF 128/68 84 14 98% ra Gen - NARD sitting up at side of bed Psych - unhappy mood and angry at times. Talks over provider and interrupts frequently. Speaks loudly and is demanding. Seems unreceptive to education at this time. DS: Data Data Completed and Pending Labs on day of discharge: Labs from last 24 hours 06/02/22 06/02/22 06/02/22
[2022-06-05 19:27] LABS: Osmolality, Urine 635 mOsm/kg (50-1200)
== END 2022-06-03 08:31 | disposition left against medical advice (07) ==
LOC: ANHED 06-03 02:59 → ANHIMU 06-03 05:49
PROVIDERS: Emergency Medicine; Admitting Provider Internal Medicine; Emergency Provider Physician Assistant; PCP Internal Medicine; Visit Provider Internal Medicine
DX: G93.41 Metabolic encephalopathy (principal); R77.8 Other specified abnormalities of plasma proteins; C16.9 Malignant neoplasm of stomach, unspecified; C78.7 Secondary malignant neoplasm of liver and intrahepatic bile duct; I10 Essential (primary) hypertension; E11.9 Type 2 diabetes mellitus without complications; Z87.19 Personal history of other diseases of the digestive system; E78.5 Hyperlipidemia, unspecified; J90 Pleural effusion, not elsewhere classified; Z20.822 Contact with and (suspected) exposure to COVID-19; E03.9 Hypothyroidism, unspecified; K55.069 Acute infarction of intestine, part and extent unspecified; G47.33 Obstructive sleep apnea (adult) (pediatric); E87.1 Hypo-osmolality and hyponatremia; D50.0 Iron deficiency anemia secondary to blood loss (chronic); E83.42 Hypomagnesemia; E66.3 Overweight; Z68.26 Body mass index [BMI] 26.0-26.9, adult; R94.31 Abnormal electrocardiogram [ECG] [EKG]; Z98.890 Other specified postprocedural states; R60.0 Localized edema; Z82.49 Family history of ischemic heart disease and other diseases of the circulatory system; F12.90 Cannabis use, unspecified, uncomplicated; Z87.891 Personal history of nicotine dependence; Z79.01 Long term (current) use of anticoagulants; Z79.891 Long term (current) use of opiate analgesic; Z79.899 Other long term (current) drug therapy
CPT/HCPCS: 36415; 70450; 71275; 80053; 81001; 81002; 81050; 82140; 82570; 83735; 83880; 83935; 84133; 84145; 84156; 84295; 84484; 85025; 85610; 85730; 86850; 86900; 86901; 87636; 93005; 96361; 96365; 96366; 96374; 99285; G0378; G0379; J1940; J3475; J7030; Q9967

== ENCOUNTER 2022-06-11 10:34 | Outpatient (CLI) | payer OTHER, SELFPAY ==
--- NOTE | 2022-06-11 10:41 | ECHO_ITS ---
Patient Info Name: Matt Dennis Age: 56 years : 1965 Gender: Male Ht: 70 in Wt: 185 lbs BSA: 2.05 m2 HR: 85 bpm BP: 114 / 70 mmHg Technical Quality: Good Exam Date: 06/11/2022 11:04 AM Exam Location: [facility] Patient Status: Outpatient Admit Date: 06/11/2022 Staff Ordering Physician: Alpesh Maciel DO Mat Cleaning Machine Operator: Carmenza Pena RDCS Attending Provider: Alpesh Maciel DO Referring Physician: Raheem CARRASQUILLO; Exam Type: CA echo doppler color flow Study Info Indications R06.09 - Other forms of dyspnea Complete two-dimensional, color flow and Doppler transthoracic echocardiogram is performed. Summary 1. Complete two-dimensional, color flow and Doppler transthoracic echocardiogram is performed. 2. Left ventricular chamber dimension is mildly enlarged. 3. Left ventricular systolic function is moderately reduced, estimated at 35-40%. 4. The left ventricular diastolic function is grade I diastolic dysfunction. 5. Mid to apical septum/anteroseptum/anterior segments are thin and akinetic. Apical septum is akinetic. 6. E/e' 14 is mildly elevated. 7. Global longitudinal strain is abnormal at -12.7%. 8. Left atrial chamber dimension is mildly enlarged. 9. There is trace mitral valve regurgitation. 10. No pulmonary hypertension, estimated pulmonary arterial systolic pressure is 34 mmHg. 11. The aortic root size at the sinus of Valsalva is borderline dilated at 4.0 cm. 12. There is small circumferential pericardial effusion. Left Ventricle Mid to apical septum/anteroseptum/anterior segments are thin and akinetic. Apical septum is akinetic. E/e' 14 is mildly elevated. Global longitudinal strain is abnormal at -12.7%. Left ventricular chamber dimension is mildly enlarged. Left ventricular systolic function is moderately reduced, estimated at 35-40%. The left ventricular diastolic function is grade I diastolic dysfunction. Right Ventricle Right ventricular systolic function is normal and with normal TAPSE 2.9 cm. Right ventricular chamber dimension is normal. Left Atria Left atrial chamber dimension is mildly enlarged. Right Atria Right atrial chamber dimension is normal. Aortic Valve The aortic valve is trileaflet. There is no aortic valve stenosis. There is no aortic valve regurgitation. Pulmonic Valve There is no pulmonic regurgitation. Mitral Valve There is no mitral valve stenosis. There is trace mitral valve regurgitation. Tricuspid Valve There is no tricuspid valve regurgitation. No pulmonary hypertension, estimated pulmonary arterial systolic pressure is 34 mmHg. Pericardium/Pleural No cardiac tamponade. There is small circumferential pericardial effusion. Inferior Vena Cava Normal inferior vena cava with >50% collapse upon inspiration consistent with normal right atrial pressure, 5 mmHg. Aorta The aortic root size at the sinus of Valsalva is borderline dilated at 4.0 cm. Left Ventricular Outflow Tract Name Value Normal LVOT 2D LVOT Diameter 2.1 cm LVOT Doppler LVOT Peak Gradient 5 mmHg LVOT Mean Gradient 3 m
== END 2022-06-11 10:35 | disposition home or self-care (01) ==
PROVIDERS: PCP Internal Medicine; Visit Provider Internal Medicine Cardiovascular Disease
DX: R06.09 Other forms of dyspnea (principal); I31.39 Other pericardial effusion (noninflammatory); I51.7 Cardiomegaly
CPT/HCPCS: 93306

== ENCOUNTER 2022-07-27 10:43 | Outpatient (CLI) | payer OTHER, SELFPAY ==
[2022-07-27 11:27] LABS: Hematocrit 33.5 % (42.0-52.0); Hemoglobin 9.7 g/dL (14.0-18.0); Mean Corpuscular Hemoglobin 23.7 pg (26-34); Mean Corpuscular Volume 81.9 fl (80-100); Mean Platelet Volume 8.9 fl (7.4-10.4); Platelet Count Result 380 k/mm3 (150-375); Red Blood Count 4.09 M/mm3 (4.6-6.20); Red Cell Distribution Width 16.9 % (11.5-14.5); White Blood Count 8.4 K/mm3 (4.5-10.0)
[2022-07-27 11:34] LABS: Alanine Aminotransferase 20 U/L (6-50); Albumin Level 3.3 g/dL (3.5-5.1); Alkaline Phosphatase 133 U/L (38-126); Anion Gap 2 mmol/L (8-16); Aspartate Amino Transferase 40 U/L (17-59); Bilirubin,Total 0.6 mg/dL (0.2-1.3); Blood Urea Nitrogen 7 mg/dL (9-20); Calcium 8.6 mg/dL (8.4-10.2); Carbon Dioxide 34 mmol/L (22-30); Chloride 96 mmol/L (98-107); Estimated Glomerular Filt Rate > 60; Glucose 104 mg/dL (65-110); Potassium 3.2 mmol/L (3.4-5.0); Sodium 132 mmol/L (137-145)
== END 2022-07-27 10:44 | disposition home or self-care (01) ==
LOC: ANHLAB 10:45
PROVIDERS: PCP Internal Medicine; Visit Provider Anesthesiology
DX: D50.0 Iron deficiency anemia secondary to blood loss (chronic) (principal); C79.9 Secondary malignant neoplasm of unspecified site; C16.9 Malignant neoplasm of stomach, unspecified
CPT/HCPCS: 36415; 80053; 85027

== ENCOUNTER 2022-08-04 00:33 | Day surgery (SDC) | payer OTHER, SELFPAY ==
--- NOTE | 2022-08-02 10:32 | PC.NURSE ---
Labs ordered per and reviewed on 07/27/2022. Okay to proceed with procedure per Dr. Liu.
[2022-08-04 06:50] VITALS: BP 124/78; PULSE 83; RESP 18; TEMP 36; O2SAT 97; BMI 23.4
[2022-08-04] MEDS: LACTATED RINGERS 1,000 ML 150 ML IV CONT (07:04)
--- NOTE | 2022-08-04 07:13 | WPDANESEPPF ---
Anes - Initial Pre Proc Eval Procedure: Operation Date: 08/04/22 08:15 Proposed Procedures p Esophagogastroduodenoscopy - Steve Sorto MD Date/Time: 08/04/22 07:13 Surgeon: Steve Sorto MD Pre Op Diagnosis: Gastric Ulcer Patient Data Age: 56 Gender: M Height: 1.78 m Weight: 74.2 kg Last Vital Signs Temp 36.0 C L 08/04/22 06:50 Pulse 83 08/04/22 06:50 Resp 18 08/04/22 06:50 BP 124/78 08/04/22 06:50 Pulse Ox 97 08/04/22 06:50 O2 Del Method Room Air 08/04/22 06:50 Allergies Allergy/AdvReac Type Severity Reaction Status Date / Time No Known Allergies Allergy Verified 08/04/22 06:51 Home Medications Medication Instructions Recorded Confirmed Type levothyroxine 125 mcg tablet 125 mcg PO DAILY #90 tabs 12/14/21 08/04/22 Rx pantoprazole 40 mg tablet,delayed 40 mg PO QAM #90 tabs 12/15/21 08/04/22 Rx release atorvastatin 20 mg tablet 20 mg PO DAILY #90 tabs 06/08/22 08/04/22 Rx aspirin 81 mg tablet,delayed 81 mg PO DAILY 06/14/22 08/04/22 History release (Adult Aspirin Regimen) ferrous sulfate 325 mg (65 mg 325 mg PO BID 06/14/22 08/04/22 History iron) tablet (Feosol) mecobalamin (vitamin B12) 1,000 1,000 mcg PO DAILY 06/14/22 08/04/22 History mcg lozenges losartan 25 mg tablet 25 mg PO DAILY #30 tabs 06/15/22 08/04/22 Rx isosorbide mononitrate 30 mg 30 mg PO DAILY #90 tabs 07/13/22 08/04/22 Rx tablet,extended release 24 hr carvedilol 6.25 mg tablet (Coreg) 6.25 mg PO Q12H 07/22/22 08/04/22 History Patient hx anesthesia problems: none Family hx anesthesia problems: none Results Review: All pre-operative results and documents have been reviewed as part of the pre-operative evaluation. FORMERLY [facility], [facility] Past Medical History Medical History (Updated 08/04/22 @ 07:17 by Abdullahi Hassan MD) CAD (coronary artery disease) Cardiomyopathy Chronic anemia Essential (primary) hypertension Gastric cancer HTN (hypertension) Hyperlipidemia Hypothyroidism Malignant neoplasm of stomach metastatic to liver Metastasis MALINI (obstructive sleep apnea) MALINI (obstructive sleep apnea) Overweight Smoker Stomach cancer Tobacco use Type 2 diabetes mellitus Family History Family History Father Family history of cardiovascular disease Social History Social History Smoking packs per day: 0.5 Smoking cigarettes per day: 10.0 Years smoked: 20 Smoking pack-years: 10.00 Smoking status: Current every day smoker Tobacco type: cigarettes Second hand tobacco smoke exposure: No Alcohol intake: former Substance use: current Substance use type: marijuana Other substance usage details: daily Lack of Transportation: No Lack of Food: Never True Current Housing: I Have Housing Concerned About Future Housing: No Difficulty Paying Gas/Electric Bills: No Difficulty Paying for Meds: No Currently Unemployed: No Education: High School Diploma/GED Difficulty w/ Childcare or Family Care: No Living arrangements: with family Spiritual care concerns: No Anes - Eval Final PreProcedure Day of Procedure 08/04/22 07:13 Patient weight: normal Heart: regular rate and rhythm Lungs: clear to auscultation Airway: Mallampati scale class II Neurological: alert and oriented Last oral intake: >/= 8 hours ASA classification: IV Emergent: no Anesthetic plan: proceed Anesthesia type and monitoring: general GIVS and standard monitoring Results Review: All pre-operative results and documents have been reviewed as part of the pre-operative evaluation. Informed Consent: The patient's anesthetic plan and its attendant risks and benefits were discussed with the patient/family/POA. Questions were solicited and answers provided to the satisfaction of the patient/family/POA.
--- NOTE | 2022-08-04 08:02 | PM.HPGS ---
History of Present Illness History of Present Illness Consent: Risks, benefits, and alternatives have been discussed and questions answered. Patient agrees to proceed with procedure. Chief complaint: Gastric Ulcer Narrative: Matt Dennis is a 56 year old male here for egd, had metastatic gastric cancer to liver and LN 03/2022 and formally diagnosed 04/2022 with EUS, he had massive GIB 05/2022 treated at [facility], EGD found 8 cm oozing ulcer gastroesophageal, bx confirmed cancer, treated with apc. He received chemotherapy but then developed BARTON, diagnosed with CHF EF 35%, denies any more bleeding and then had CTA coronaries at [facility] that showed significant disease, recommending to get stent celeste but needs another egd to reassess site since he will need to be on blood thinners. Review of Systems Constitutional: Constitutional: Denies headache(s) Eyes: Eyes: Denies blurry vision ENT: Reports Normal hearing present and Denies headache(s) Cardiovascular: Cardiovascular: Reports dyspnea on exertion Respiratory: Respiratory: Denies cough Gastrointestinal: Gastrointestinal: Reports no additional gastrointestinal complaints Genitourinary: Genitourinary: Denies dysuria Musculoskeletal: Musculoskeletal: Denies neck pain Integumentary/Breasts: Skin/Breast: Denies dry skin Neurologic: Reports Normal hearing present, Denies headache(s) and Denies weakness Psychiatric: Psychiatric: Denies anxiety Endocrine: Endocrine: Denies change in body appearance Allergic/Immunologic: Allergic/Immunologic: Denies urticaria PMFSH Past Medical History Medical History (Updated 08/04/22 @ 07:17 by Abdullahi Hassan MD) CAD (coronary artery disease) Cardiomyopathy Chronic anemia Essential (primary) hypertension Gastric cancer HTN (hypertension) Hyperlipidemia Hypothyroidism Malignant neoplasm of stomach metastatic to liver Metastasis MALINI (obstructive sleep apnea) MALINI (obstructive sleep apnea) Overweight Smoker Stomach cancer Tobacco use Type 2 diabetes mellitus Family History Family History Father Family history of cardiovascular disease Social History Social History Smoking packs per day: 0.5 Smoking cigarettes per day: 10.0 Years smoked: 20 Smoking pack-years: 10.00 Smoking status: Current every day smoker Tobacco type: cigarettes Second hand tobacco smoke exposure: No Alcohol intake: former Substance use: current Substance use type: marijuana Other substance usage details: daily Lack of Transportation: No Lack of Food: Never True Current Housing: I Have Housing Concerned About Future Housing: No Difficulty Paying Gas/Electric Bills: No Difficulty Paying for Meds: No Currently Unemployed: No Education: High School Diploma/GED Difficulty w/ Childcare or Family Care: No Living arrangements: with family Spiritual care concerns: No Meds Home Medications and Allergies Home Medications Medication Instructions Recorded Confirmed Type levothyroxine 125 mcg tablet 125 mcg PO DAILY #90 tabs 12/14/21 08/04/22 Rx pantoprazole 40 mg tablet,delayed 40 mg PO QAM #90 tabs 12/15/21 08/04/22 Rx release atorvastatin 20 mg tablet 20 mg PO DAILY #90 tabs 06/08/22 08/04/22 Rx aspirin 81 mg tablet,delayed 81 mg PO DAILY 06/14/22 08/04/22 History release (Adult Aspirin Regimen) ferrous sulfate 325 mg (65 mg 325 mg PO BID 06/14/22 08/04/22 History iron) tablet (Feosol) mecobalamin (vitamin B12) 1,000 1,000 mcg PO DAILY 06/14/22 08/04/22 History mcg lozenges losartan 25 mg tablet 25 mg PO DAILY #30 tabs 06/15/22 08/04/22 Rx isosorbide mononitrate 30 mg 30 mg PO DAILY #90 tabs 07/13/22 08/04/22 Rx tablet,extended release 24 hr carvedilol 6.25 mg tablet (Coreg) 6.25 mg PO Q12H 07/22/22 08/04/22 History Allergies Allergy/AdvReac Type Severity React
[2022-08-04 08:19] VITALS: BP 123/69; PULSE 81; RESP 22; O2SAT 100
[2022-08-04 08:29] VITALS: BP 124/81; PULSE 76; RESP 16; O2SAT 100
[2022-08-04 08:39] VITALS: BP 127/84; PULSE 78; RESP 16; O2SAT 100
== END 2022-08-04 08:50 | disposition home or self-care (01) ==
PROVIDERS: PCP Internal Medicine; Visit Provider Internal Medicine Gastroenterology
PROC: 0DJ08ZZ Inspection of Upper Intestinal Tract, Via Natural or Artificial Opening Endoscopic (ICD-10-PCS; CPT 43235; principal; 2022-08-04 08:15)
DX: C16.0 Malignant neoplasm of cardia (principal); C78.7 Secondary malignant neoplasm of liver and intrahepatic bile duct; C77.9 Secondary and unspecified malignant neoplasm of lymph node, unspecified; I25.10 Atherosclerotic heart disease of native coronary artery without angina pectoris; I11.0 Hypertensive heart disease with heart failure; I50.9 Heart failure, unspecified; I42.9 Cardiomyopathy, unspecified; E78.5 Hyperlipidemia, unspecified; E03.9 Hypothyroidism, unspecified; G47.33 Obstructive sleep apnea (adult) (pediatric); E11.9 Type 2 diabetes mellitus without complications; D64.9 Anemia, unspecified; F17.210 Nicotine dependence, cigarettes, uncomplicated; F12.90 Cannabis use, unspecified, uncomplicated; Z79.82 Long term (current) use of aspirin; Z92.21 Personal history of antineoplastic chemotherapy
CPT/HCPCS: 43239; 88305; J2704; J3010; J7120

== ENCOUNTER 2022-08-13 00:04 | Day surgery (SDC) | payer OTHER, SELFPAY ==
[2022-08-12 14:09] VITALS: BMI 23.0
[2022-08-13] VITALS (18 sets, daily range): BP systolic 109–149; BP diastolic 69–84; PULSE 79–87; RESP 15–21; TEMP 36.3; O2SAT 99–100; BMI 23.3
[2022-08-13 08:12] LABS: Basophils Percent Auto 0.3 % (0.2-1.2); Eosinophils Absolute Auto 0.1 K/mm3 (0-0.3); Eosinophils Percent Auto 0.6 % (0-4.4); Hemoglobin 9.3 g/dL (14.0-18.0); Immature Granulocyte Absolute 0.04 K/mm3 (0.00-0.031); Immature Granulocyte Percent A 0.4 % (0-0.5); Lymphocytes Absolute Auto 1.42 K/mm3 (0.9-3.2); Lymphocytes Percent Auto 15.1 % (18.3-44.2); Mean Corpuscular Hemoglobin 23.8 pg (26-34); Mean Corpuscular Volume 76.9 fl (80-100); Mean Platelet Volume 8.8 fl (7.4-10.4); Monocytes Absolute Auto 0.6 K/mm3 (0.1-0.6); Monocytes Percent Auto 6.7 % (2.6-8.5); Neutrophils Absolute Auto 7.2 K/mm3 (1.3-6.7); Neutrophils Percent Auto 76.9 % (45.5-73.1); Platelet Count Result 357 k/mm3 (150-375); Red Cell Distribution Width 15.6 % (11.5-14.5); White Blood Count 9.4 K/mm3 (4.5-10.0)
[2022-08-13 08:22] LABS: Prothrombin Time 13.9 Seconds (11.1-14.7)
[2022-08-13 08:34] LABS: Anion Gap 1 mmol/L (8-16); Blood Urea Nitrogen 8 mg/dL (9-20); Calcium 8.3 mg/dL (8.4-10.2); Carbon Dioxide 34 mmol/L (22-30); Chloride 89 mmol/L (98-107); Estimated CRCL calculation 142 ml/min; Estimated Glomerular Filt Rate > 60; Glucose 99 mg/dL (65-110); Potassium 3.2 mmol/L (3.4-5.0); Sodium 124 mmol/L (137-145)
[2022-08-13] MEDS: SODIUM CHLORIDE 0.9% IV 500 ML 100 ML IV CONT (08:45)
--- NOTE | 2022-08-13 09:00 | SUR.PREOP ---
DR. RIOS TO BEDSIDE TO SPEAK W/ PT AND .
--- NOTE | 2022-08-13 09:12 | WPDMODSED ---
Moderate Sedation Note-Pt Data Patient Data Diagnosis: Coronary artery disease left ventricular systolic dysfunction evidence of previous anterior wall ID metastatic gastric cancer Present Complaint: significant low back and right hip pain Procedure to be performed/Plan: left heart catheterization Allergies Allergy/AdvReac Type Severity Reaction Status Date / Time No Known Allergies Allergy Verified 08/13/22 07:36 Home Medications Medication Instructions Recorded Confirmed Type levothyroxine 125 mcg tablet 125 mcg PO DAILY #90 tabs 12/14/21 08/13/22 Rx pantoprazole 40 mg tablet,delayed 40 mg PO QAM #90 tabs 12/15/21 08/13/22 Rx release atorvastatin 20 mg tablet 20 mg PO DAILY #90 tabs 06/08/22 08/13/22 Rx aspirin 81 mg tablet,delayed 81 mg PO DAILY 06/14/22 08/13/22 History release (Adult Aspirin Regimen) ferrous sulfate 325 mg (65 mg 325 mg PO BID 06/14/22 08/13/22 History iron) tablet (Feosol) mecobalamin (vitamin B12) 1,000 1,000 mcg PO DAILY 06/14/22 08/13/22 History mcg lozenges losartan 25 mg tablet 25 mg PO DAILY #30 tabs 06/15/22 08/13/22 Rx isosorbide mononitrate 30 mg 30 mg PO DAILY #90 tabs 07/13/22 08/13/22 Rx tablet,extended release 24 hr carvedilol 6.25 mg tablet (Coreg) 6.25 mg PO Q12H 07/22/22 08/13/22 History sucralfate 100 mg/mL oral 100 mg PO AC 08/12/22 08/13/22 History suspension Current Medications: Active Medications Sodium Chloride (Normal Saline Iv) 500 mls @ 100 mls/hr IV CONT .Q5H GLENN Last Admin: 08/13/22 08:45 Dose: 100 mls/hr Sedation/Anesthesia: No previous sedation/anesthesia problems (including family history). [facility] Past Medical History Medical History (Updated 08/04/22 @ 07:17 by Abdullahi Hassan MD) CAD (coronary artery disease) Cardiomyopathy Chronic anemia Essential (primary) hypertension Gastric cancer HTN (hypertension) Hyperlipidemia Hypothyroidism Malignant neoplasm of stomach metastatic to liver Metastasis MALINI (obstructive sleep apnea) MALINI (obstructive sleep apnea) Overweight Smoker Stomach cancer Tobacco use Type 2 diabetes mellitus Family History Family History Father Family history of cardiovascular disease Social History Social History Smoking packs per day: 0.5 Smoking cigarettes per day: 10.0 Years smoked: 20 Smoking pack-years: 10.00 Smoking status: Current every day smoker Tobacco type: cigarettes Smokeless tobacco user: chewing tobacco Second hand tobacco smoke exposure: No Alcohol intake: former Substance use: current Substance use type: marijuana Other substance usage details: daily Lack of Transportation: No Lack of Food: Never True Current Housing: I Have Housing Concerned About Future Housing: No Difficulty Paying Gas/Electric Bills: No Difficulty Paying for Meds: No Currently Unemployed: No Education: High School Diploma/GED Difficulty w/ Childcare or Family Care: No Living arrangements: other Spiritual care concerns: No Mod Sed Physical Exam Physical Exam Pre Procedural Exam: Normal: Throat, Airway, Lungs, Heart Size, Heart Rate, Heart Rhythm, Neuro Exam and Extremities and Variation: Appearance ( thin white male in significant pain) Hours since solid foods: 12 Hours since liquid intake: 12 Mallampati Classification: class II Internal Medicine - PN: Obj Da Vital Signs Vital Signs: Vital Signs - 24 hr 08/13/22 07:41 Temperature 36.3 C L Pulse Rate 83 Respiratory Rate 20 Blood Pressure 139/78 Pulse Oximetry 100 Oxygen Delivery Room Air Meds/Results Medications: Active Medications Generic Name Dose Route Start Last Admin Trade Name Freq PRN Reason Stop Dose Admin Sodium Chloride 500 mls @ 100 mls/hr 08/13/22 07:30 08/13/22 08:45 Normal Saline Iv IV CONT 100 mls/hr .Q5H GLENN Administration
--- NOTE | 2022-08-13 09:58 | WPDCARDPROC ---
Cardiac Cath Procedure Note Date of procedure:: 08/13/22 Performing physician:: Ezekiel Balderas MD Indication:: Abnormal coronary CTA left ventricular systolic dysfunction evidence of previous anterior wall WI metastatic gastric cancer Brief clinical history:: this is a 57-year-old man without known coronary artery disease. He recently unfortunately been found to have metastatic gastric cancer. He has been found on cardiac evaluation have left ventricular systolic dysfunction. His electrocardiogram is consistent with previous anterior wall WI. He has a coronary CTA that suggests high-grade disease in the LAD. Patient is not reporting any ischemic chest pain symptoms. Procedure Procedure performed:: Left ventriculogram coronary angiogram femoral artery angiogram Sedation/Medication given:: fentanyl 100 mg Versed 4 mg case start 9:35 a.m. case end time 9:51 a.m. Access site:: right femoral artery Estimated blood loss:: 25 cc Procedure note:: patient was brought to the cardiac catheterization lab in the postabsorptive state he was placed on the cardiac lab assistant table in the right femoral triangle was prepped and draped in the usual fashion. The patient was since significant pain with back and sciatic pain and had to be sedated prior to starting the procedure. 1% lidocaine was infiltrated in the right groin. The femoral artery was punctured and a 5 [place] vascular sheath was placed. After this I used a 5 [place] angled pigtail left ventriculography in the 30 degree SANDERS projection. Left-sided hemodynamics were then demonstrated. Following this a FL4 catheter was used to engage and inject the left coronary artery in multiple projections a JR4 catheter was used to engage inject the right coronary artery in orthogonal projections. The cineangiograms were then finished. A femoral angiogram was done through the sheath after which was determined the sheath will be removed with direct manual compression. The the puncture site was in or very near the common femoral/ SFA bifurcation. The patient was taken the holding area for sheath removal there were no procedural complications and he left the lab assistant with no evidence of groin hematoma. Findings:: Hemodynamics: Central aortic pressure is 138 over 76 left ventricle 138 over to end-diastolic pressure 14 there was systolic pullback across the aortic valve. Left ventricle: The LV is mildly enlarged the mid anterior wall is severely hypodynamic the apical segment is akinetic the apical inferior wall is also akinetic. The global ejection fraction appears to be approximately 35-40% by visual estimation. The left main coronary artery is widely patent the left anterior descending is a large caliber artery proximally with minimal plaquing. It gives rise to a large septal perforating complex and a large bifurcating diagonal branch. There is mild 30-40% stenosis in the diagonal. After these arteries arise the LAD is 100% occluded with antegrade collateral filling of the remainder of the LAD which is seen to proceed down to And around the apex. the circumflex is a large caliber vessel which is dominant to the posterior circulation the circumflex has mild luminal irregularities in the marginal branches as well as in the left PDA. There are no significant stenotic lesions in the circumflex system. The right coronary artery is medium in caliber non dominant giving rise to a large right ventricular branch the right coronary artery is free of disease. Conclusion:: 1. Left coronary dominant circulation with single-vessel coronary artery disease lad is occluded after a large diagonal and septal perforating complex take their origin. There is antegrade collateral filling to the occluded portion of the LAD. 2. No angiographically significant circumflex or right coronary disease RCA is small and non dominant 3. hypokinetic anterior wall akinetic apex and apical inf
== END 2022-08-13 15:40 | disposition home or self-care (01) ==
PROVIDERS: PCP Internal Medicine; Visit Provider Specialist
PROC: 4A023N7 Measurement of Cardiac Sampling and Pressure, Left Heart, Percutaneous Approach (ICD-10-PCS; CPT 93452; principal; 2022-08-13 09:00)
DX: I25.10 Atherosclerotic heart disease of native coronary artery without angina pectoris (principal); R93.1 Abnormal findings on diagnostic imaging of heart and coronary circulation; C16.9 Malignant neoplasm of stomach, unspecified; C78.7 Secondary malignant neoplasm of liver and intrahepatic bile duct; I42.9 Cardiomyopathy, unspecified; I10 Essential (primary) hypertension; E78.5 Hyperlipidemia, unspecified; E03.9 Hypothyroidism, unspecified; D64.9 Anemia, unspecified; G47.33 Obstructive sleep apnea (adult) (pediatric); E11.9 Type 2 diabetes mellitus without complications; Z79.82 Long term (current) use of aspirin; F17.210 Nicotine dependence, cigarettes, uncomplicated; F17.220 Nicotine dependence, chewing tobacco, uncomplicated
CPT/HCPCS: 36415; 80048; 85025; 85610; 93458; C1887; C1894; J1644; J2250; J3010; J3360; J7040

== ENCOUNTER 2022-08-23 04:54 | Emergency (ER) | payer OTHER, SELFPAY ==
--- NOTE | 2022-08-23 06:25 | ED.GENADULT ---
HPI - General Adult General Chief complaint: Cardiac Arrest/CPR Stated complaint: cardiac arrest History of Present Illness HPI narrative: Patient 57-year-old gentleman who presents the emergency department with chief complaint of cardiac arrest. Patient has history of gastric cancer and recently underwent a cardiac catheterization. Per the family the patient was feeling weak called EMS to be checked out upon EMS arrival patient was initially okay and then EMS left the patient collapsed and EMS was called again patient became unresponsive was vomiting coffee-ground's black material out of his mouth Related Data Home Medications Medication Instructions Recorded Confirmed aspirin 81 mg tablet,delayed 81 mg PO DAILY 06/14/22 08/17/22 release (Adult Aspirin Regimen) ferrous sulfate 325 mg (65 mg 325 mg PO BID 06/14/22 08/17/22 iron) tablet (Feosol) mecobalamin (vitamin B12) 1,000 1,000 mcg PO DAILY 06/14/22 08/17/22 mcg lozenges carvedilol 6.25 mg tablet (Coreg) 6.25 mg PO Q12H 07/22/22 08/17/22 sucralfate 100 mg/mL oral 100 mg PO AC 08/12/22 08/17/22 suspension Allergies Allergy/AdvReac Type Severity Reaction Status Date / Time No Known Allergies Allergy Verified 08/17/22 08:42 Review of Systems Review of Systems: ROS unobtainable: Yes unobtainable due to endotracheal tube, unobtainable due to medical condition and unobtainable due to mental status PMFSH Past Medical History Medical History CAD (coronary artery disease) Cardiomyopathy Chronic anemia Essential (primary) hypertension Gastric cancer HTN (hypertension) Hyperlipidemia Hypothyroidism Malignant neoplasm of stomach metastatic to liver Metastasis MALINI (obstructive sleep apnea) MALINI (obstructive sleep apnea) Overweight Smoker Stomach cancer Tobacco use Type 2 diabetes mellitus Family History Family History Father Family history of cardiovascular disease Social History Social History Smoking packs per day: 0.5 Smoking cigarettes per day: 10.0 Years smoked: 20 Smoking pack-years: 10.00 Smoking status: Current every day smoker Tobacco type: cigarettes Smokeless tobacco user: chewing tobacco Second hand tobacco smoke exposure: No Alcohol intake: former Substance use: current Substance use type: marijuana Other substance usage details: daily Lack of Transportation: No Lack of Food: Never True Current Housing: I Have Housing Concerned About Future Housing: No Difficulty Paying Gas/Electric Bills: No Difficulty Paying for Meds: No Currently Unemployed: No Education: High School Diploma/GED Difficulty w/ Childcare or Family Care: No Living arrangements: other Spiritual care concerns: No Exam Narrative: GENERAL: Ill appearing Jermaine device in place performing compressions HEAD: Normocephalic, atraumatic. EYES: Pupils fixed dilated. ENT: No signs of trauma pale mucosa black material coming out of the mouth NECK: Supple. CHEST: Ventilation with [id number] HEART: Regular rate and rhythm. No murmur heard. Normal peripheral pulses. ABDOMEN: Soft, nontender, nondistended, EXTREMITIES: No signs of trauma to extremities. SKIN: Pale skin. NEURO: Unresponsive PSYCH: Unresponsive Procedures Intubation Intubation #1: Intubation Date: 08/23/22 Intubation Time: 06:31 Time out performed: Yes sedative: none Tube Size (cm): 7.5 Method of Intubation: orotracheal Number of Attempts: 1 Tube Secured Depth (cm): 23 Tube Secured Location: lips Tube Placement Confirmation: visualized tube passing through cords, equal breath sounds bilaterally, no breath sounds over epigastrium and confirmation by capnometry Patient Tolerated Procedure: well
--- NOTE | 2022-08-23 09:49 | PC.NURSE ---
Body released to [facility] home.
== END 2022-08-23 09:51 | disposition expired ==
PROVIDERS: Emergency Provider Emergency Medicine; PCP Internal Medicine
DX: I46.9 Cardiac arrest, cause unspecified (principal); F17.210 Nicotine dependence, cigarettes, uncomplicated; I25.10 Atherosclerotic heart disease of native coronary artery without angina pectoris; I10 Essential (primary) hypertension; C16.9 Malignant neoplasm of stomach, unspecified; E78.5 Hyperlipidemia, unspecified; E03.9 Hypothyroidism, unspecified; G47.30 Sleep apnea, unspecified; E11.9 Type 2 diabetes mellitus without complications
CPT/HCPCS: 31500; 92950; 99285; J0171; J0282